=== PATIENT | female | born 1955 | race Caucasian/White ===

== ENCOUNTER 2022-04-10 00:56 | Inpatient (IN) | payer MEDICARE ==
[2022-04-10] MEDS ORDERED: SODIUM CHLORIDE 0.9% 1,000 ML IV STA ×4 (01:33→04:51)
[2022-04-10] MEDS ORDERED: DILTIAZEM DRIP BOLUS FROM BAG 1 MG SOLN IV ONE (01:44)
--- NOTE | 2022-04-10 01:44 | ED ---
Fever HPI - General Chief Complaint: Syncope Stated Complaint: Reaction to medication Time Seen by Provider: 04/10/22 01:33 Source: patient, EMS, RN notes reviewed, old records reviewed Mode of arrival: EMS Limitations: no limitations - History of Present Illness Initial Comments: This is a 66-year-old female presenting after event. Patient hasn't had a fever and chills for about 2 weeks now. 2 weeks ago was diagnosed with urinary tract infection and sent to the emergency department for evaluation. At times patient complains of headache bodyaches body pains decreased urination fever and chills. MD Complaint: fever, malaise, weakness -: days(s) Temperature Source: subjective, oral Context: recent antibiotic use Associated Symptoms: myalgias, nausea, vomiting, confusion Treatments Prior to Arrival: none - Related Data Home Medications Medication Instructions Recorded Confirmed Lisinopril-Hctz 20-12.5 mg 1 tab PO DAILY 04/10/22 04/10/22 [Zestoretic 20-12.5] Metoprolol Succinate (ER) [Toprol 100 mg PO DAILY 04/10/22 04/10/22 Xl] Pioglitazone [Actos] 45 mg PO DAILY 04/10/22 04/10/22 Simvastatin 40 mg PO DAILY 04/10/22 04/10/22 Terbinafine [LamISIL] 250 mg PO DAILY 04/10/22 04/10/22 traZODone HCL [Desyrel] 50 mg PO HS 04/10/22 04/10/22 Allergies Allergy/AdvReac Type Severity Reaction Status Date / Time No Known Allergies Allergy Verified 04/10/22 07:40 Review of Systems ROS Statement: Those systems with pertinent positive or pertinent negative responses have been documented in the HPI. ROS Other: All systems not noted in ROS Statement are negative. Past Medical History Past Medical History: Atrial Fibrillation, Diabetes Mellitus, Hyperlipidemia Additional Past Medical History / Comment(s): recent kidney infection History of Any Multi-Drug Resistant Organisms: None Reported Past Surgical History: Ablation Additional Past Surgical History / Comment(s): ablation Aug 2021 Past Psychological History: No Psychological Hx Reported Smoking Status: Never smoker Past Alcohol Use History: Occasional General Exam Limitations: altered mental status General appearance: alert, anxious, lethargic, in distress Head exam: Present: atraumatic, normocephalic, normal inspection Eye exam: Present: normal appearance, PERRL, EOMI. Absent: scleral icterus, conjunctival injection, periorbital swelling ENT exam: Present: normal exam, mucous membranes dry Neck exam: Present: normal inspection. Absent: tenderness, meningismus, lymphadenopathy Respiratory exam: Present: normal lung sounds bilaterally. Absent: respiratory distress, wheezes, rales, rhonchi, stridor Cardiovascular Exam: Present: normal rhythm, tachycardia, normal heart sounds. Absent: systolic murmur, diastolic murmur, rubs, gallop, clicks GI/Abdominal exam: Present: soft, normal bowel sounds. Absent: distended, tenderness, guarding, rebound, rigid Extremities exam: Present: normal inspection, full ROM, normal capillary refill. Absent: tenderness, pedal edema, joint swelling, calf tenderness Back exam: Present: normal inspection Neurological exam: Present: alert, oriented X3, CN II-XII intact Psychiatric exam: Present: normal affect, normal mood Skin exam: Present: warm, dry, intact, normal color. Absent: rash Course Vital Signs 04/10/22 04/10/22 04/10/22 00:56 01:17 03:00 Temperature 100.6 F H Pulse Rate 110 H 103 H Pulse Rate [ 143 H Bilateral Supine Auth Specialist] Respiratory 16 24 Rate Blood Pressure 97/47 84/44 O2 Sat by Pulse 97 98 Oximetry 04/10/22 04/10/22 04/10/22 03:15 03:30 03:45 Temperature Pulse Rate 103 H 102 H 102 H Pulse Rate [ Bilateral Supine Auth Specialist] Respiratory 24 24 24 Rate Blood Pressure 81/48 75/48 78/46 O2 Sat by Pulse Oximetry 04/10/22 04/10/22 04/10/22 04:00 04:15 04:40 Temperature Pulse Rate 93 93 93 Pulse Rate [ Bilateral Supine Auth Specialist] Respiratory 20 20 20 Rate Blood Pressure 81/49 70/46 83/52 O2 Sat by Pulse 94 L Oximetry 04/10/22 04/10/22 04/10/22 04:57 05:27 07:42 Temperature 98.3 F Pulse Rate 95 93 99 Pulse Rate [ Bilateral Supine Auth Specialist] Respiratory 25 H 20 14 Rate Blood Pressure 91/55 82/52 92/53 O2 Sat by Pulse 96 96 98 Oximetry 04/10/22 04/10/22 04/10/22 08:00 08:52 09:00 Temperature Pulse Rate 99 95 Pulse Rate [ Bilateral Supine Auth Specialist] Respiratory 16 23 Rate Blood Pressure 94/54 83/54 95/53 O2 Sat by Pulse 97 99 Oximetry 04/10/22 04/10/22 04/10/22 10:00 11:00 13:00 Temperature 97.7 F Pulse Rate 96 93 91 Pulse Rate [ Bilateral Supine Auth Specialist] Respiratory 18 22 16 Rate Blood Pressure 99/60 94/57 101/64 O2 Sat by Pulse 97 99 99 Oximetry 04/10/22 04/10/22 04/10/22 14:00 15:00 17:00 Temperature Pulse Rate 108 H 93 93 Pulse Rate [ Bilateral Supine Auth Specialist] Respiratory 18 16 22 Rate Blood Pressure 112/78 117/67 100/63 O2 Sat by Pulse 99 99 98 Oximetry - Reevaluation(s) Reevaluation #1: 04/10/22 03:19 Medical record is reviewed Reevaluation #2: 04/10/22 03:19 Patient did convert out of atrial fibrillation and is sinus rhythm Reevaluation #3: 04/10/22 06:53 Blood pressure continues to decompensate despite IV bolus, central line is placed patient certainly verified, septic shock Current UTI source likely bacteremia - Consultations Consultation #1: Spoke with sound who agrees to admit this patient Consultation #2: spoke w ICU who except patient ICU Procedures - Central Line Placement Right IJ Consent Obtained: verbal consent Patient Placed on Monitor/Pulse Ox: Yes Prep: mask, gown, gloves Central Line Prep: Chlorhexidine scrub, sterile drapes applied Local Anesthesia Used: Lidocaine 1% Ultrasound Used for Placement: Yes Central Line Lumen Inserted: triple Central Line Position: good blood return, all ports aspirated, flushed, capped, sutured in place with nylon Dressing Applied: Tegaderm Post Procedure X-Ray: tip of catheter in good position Patient Tolerated Procedure: well Complications: none - Sepsis Sepsis Focused Exam #1 Time Sepsis Criteria Met: 05:00 Sepsis Focused Exam Date: 04/10/22 Sepsis Focused Exam Time: 05:30 Sepsis Focused Exam Complete: Yes Vital Signs & RN Notes Reviewed: Yes Capillary Refill: < 2 Seconds: Fingers, Toes Peripheral Pulses: Normal: Radial (R), Radial (L), Posterior Tibialis (R), Posterior Tibialis (L), Dorsalis Pedis (R), Dorsalis Pedis (L) Skin Color: Normal for Patient Respiratory Exam: normal lung sounds Cardiovascular Exam: regular rate, normal rhythm Medical Decision Making - Medical Decision Making 66 female to the emergency department for evaluation. Patient is found to be in septic shock started on pressors with central line secondary to urinary tract infection not complete outpatient treatment. Patient placed on IV antibiotics, given significant significant resuscitation as well as started on blood pressure medication - Lab Data Result diagrams: 04/12/22 03:22 04/12/22 03:22 Lab Results 04/10/22 04/10/22 04/10/22 Range/Units 02:59 02:59 02:59 WBC 10.1 (3.8-10.6) k/uL RBC 4.60 (3.80-5.40) m/uL Hgb 14.3 (11.4-16.0) gm/dL Hct 42.5 (34.0-46.0) % MCV 92.2 (80.0-100.0) fL MCH 31.0 (25.0-35.0) pg MCHC 33.6 (31.0-37.0) g/dL RDW 13.9 (11.5-15.5) % Plt Count 288 (150-450) k/uL MPV 8.2 Neutrophils % (Manual) 82 % Band Neuts % (Manual) 11 % Lymphocytes % (Manual) 5 % Monocytes % (Manual) 2 % Neutrophils # (Manual) 9.30 H (1.3-7.7) k/uL Lymphocytes # (Manual) 0.51 L (1.0-4.8) k/uL Monocytes # (Manual) 0.20 (0-1.0) k/uL Nucleated RBCs 0 (0-0) /100 WBC Manual Slide Review Performed Large Platelets Present Polychromasia Present PT 15.9 H (9.0-12.0) sec INR 1.5 H (<1.2) APTT 27.5 (22.0-30.0) sec D-Dimer 0.87 H (<0.60) mg/L FEU Sodium 131 L (137-145) mmol/L Potassium 4.1 (3.5-5.1) mmol/L Chloride 103 (98-107) mmol/L Carbon Dioxide 16 L (22-30) mmol/L Anion Gap 12 mmol/L BUN 46 H (7-17) mg/dL Creatinine 2.02 H (0.52-1.04) mg/dL Est GFR (CKD-EPI)AfAm 29 (>60 ml/min/1.73 sqM) Est GFR (CKD-EPI)NonAf 25 (>60 ml/min/1.73 sqM) Glucose 204 H (74-99) mg/dL Lactic Ac Sepsis Rflx Plasma Lactic Acid Harpal (0.7-2.0) mmol/L Calcium 8.7 (8.4-10.2) mg/dL Phosphorus 1.5 L (2.5-4.5) mg/dL Magnesium 1.5 L (1.6-2.3) mg/dL Total Bilirubin 0.3 (0.2-1.3) mg/dL AST 26 (14-36) U/L ALT 18 (4-34) U/L Alkaline Phosphatase 171 H (38-126) U/L Troponin I (0.000-0.034) ng/mL NT-Pro-B Natriuret Pep pg/mL Total Protein 5.6 L (6.3-8.2) g/dL Albumin 3.0 L (3.5-5.0) g/dL Urine Color Urine Appearance (Clear) Urine pH (5.0-8.0) Ur Specific Everett (1.001-1.035) Urine Protein (Negative) Urine Glucose (UA) (Negative) Urine Ketones (Negative) Urine Blood (Negative) Urine Nitrite (Negative) Urine Bilirubin (Negative) Urine Urobilinogen (<2.0) mg/dL Ur Leukocyte Esterase (Negative) Urine RBC (0-5) /hpf Urine WBC (0-5) /hpf Ur Squamous Epith Cells (0-4) /hpf Urine Bacteria (None) /hpf Urine Mucus (None) /hpf Influenza Type A (PCR) (Not Detectd) Influenza Type B (PCR) (Not Detectd) RSV (PCR) (Not Detectd) SARS-CoV-2 (PCR) (Not Detectd) 04/10/22 04/10/22 04/10/22 Range/Units 02:59 02:59 02:59 WBC (3.8-10.6) k/uL RBC (3.80-5.40) m/uL Hgb (11.4-16.0) gm/dL Hct (34.0-46.0) % MCV (80.0-100.0) fL MCH (25.0-35.0) pg MCHC (31.0-37.0) g/dL RDW (11.5-15.5) % Plt Count (150-450) k/uL MPV Neutrophils % (Manual) % Band Neuts % (Manual) % Lymphocytes % (Manual) % Monocytes % (Manual) % Neutrophils # (Manual) (1.3-7.7) k/uL Lymphocytes # (Manual) (1.0-4.8) k/uL Monocytes # (Manual) (0-1.0) k/uL Nucleated RBCs (0-0) /100 WBC Manual Slide Review Large Platelets Polychromasia PT (9.0-12.0) sec INR (<1.2) APTT (22.0-30.0) sec D-Dimer (<0.60) mg/L FEU Sodium (137-145) mmol/L Potassium (3.5-5.1) mmol/L Chloride (98-107) mmol/L Carbon Dioxide (22-30) mmol/L Anion Gap mmol/L BUN (7-17) mg/dL Creatinine (0.52-1.04) mg/dL Est GFR (CKD-EPI)AfAm (>60 ml/min/1.73 sqM) Est GFR (CKD-EPI)NonAf (>60 ml/min/1.73 sqM) Glucose (74-99) mg/dL Lactic Ac Sepsis Rflx Plasma Lactic Acid Harpal 3.1 H* (0.7-2.0) mmol/L Calcium (8.4-10.2) mg/dL Phosphorus (2.5-4.5) mg/dL Magnesium (1.6-2.3) mg/dL Total Bilirubin (0.2-1.3) mg/dL AST (14-36) U/L ALT (4-34) U/L Alkaline Phosphatase (38-126) U/L Troponin I <0.012 (0.000-0.034) ng/mL NT-Pro-B Natriuret Pep 323 pg/mL Total Protein (6.3-8.2) g/dL Albumin (3.5-5.0) g/dL Urine Color Urine Appearance (Clear) Urine pH (5.0-8.0) Ur Specific [place] (1.001-1.035) Urine Protein (Negative) Urine Glucose (UA) (Negative) Urine Ketones (Negative) Urine Blood (Negative) Urine Nitrite (Negative) Urine Bilirubin (Negative) Urine Urobilinogen (<2.0) mg/dL Ur Leukocyte Esterase (Negative) Urine RBC (0-5) /hpf Urine WBC (0-5) /hpf Ur Squamous Epith Cells (0-4) /hpf Urine Bacteria (None) /hpf Urine Mucus (None) /hpf Influenza Type A (PCR) (Not Detectd) Influenza Type B (PCR) (Not Detectd) RSV (PCR) (Not Detectd) SARS-CoV-2 (PCR) (Not Detectd) 04/10/22 04/10/22 04/10/22 Range/Units 03:51 04:40 04:40 WBC (3.8-10.6) k/uL RBC (3.80-5.40) m/uL Hgb (11.4-16.0) gm/dL Hct (34.0-46.0) % MCV (80.0-100.0) fL MCH (25.0-35.0) pg MCHC (31.0-37.0) g/dL RDW (11.5-15.5) % Plt Count (150-450) k/uL MPV Neutrophils % (Manual) % Band Neuts % (Manual) % Lymphocytes % (Manual) % Monocytes % (Manual) % Neutrophils # (Manual) (1.3-7.7) k/uL Lymphocytes # (Manual) (1.0-4.8) k/uL Monocytes # (Manual) (0-1.0) k/uL Nucleated RBCs (0-0) /100 WBC Manual Slide Review Large Platelets Polychromasia PT (9.0-12.0) sec INR (<1.2) APTT (22.0-30.0) sec D-Dimer (<0.60) mg/L FEU Sodium (137-145) mmol/L Potassium (3.5-5.1) mmol/L Chloride (98-107) mmol/L Carbon Dioxide (22-30) mmol/L Anion Gap mmol/L BUN (7-17) mg/dL Creatinine (0.52-1.04) mg/dL Est GFR (CKD-EPI)AfAm (>60 ml/min/1.73 sqM) Est GFR (CKD-EPI)NonAf (>60 ml/min/1.73 sqM) Glucose (74-99) mg/dL Lactic Ac Sepsis Rflx Y Plasma Lactic Acid Harpal (0.7-2.0) mmol/L Calcium (8.4-10.2) mg/dL Phosphorus (2.5-4.5) mg/dL Magnesium (1.6-2.3) mg/dL Total Bilirubin (0.2-1.3) mg/dL AST (14-36) U/L ALT (4-34) U/L Alkaline Phosphatase (38-126) U/L Troponin I (0.000-0.034) ng/mL NT-Pro-B Natriuret Pep pg/mL Total Protein (6.3-8.2) g/dL Albumin (3.5-5.0) g/dL Urine Color Yellow Urine Appearance Cloudy H (Clear) Urine pH 5.5 (5.0-8.0) Ur Specific [place] 1.009 (1.001-1.035) Urine Protein 1+ H (Negative) Urine Glucose (UA) Negative (Negative) Urine Ketones Negative (Negative) Urine Blood Moderate H (Negative) Urine Nitrite Negative (Negative) Urine Bilirubin Negative (Negative) Urine Urobilinogen <2.0 (<2.0) mg/dL Ur Leukocyte Esterase Large H (Negative) Urine RBC <1 (0-5) /hpf Urine WBC 10 H (0-5) /hpf Ur Squamous Epith Cells 1 (0-4) /hpf Urine Bacteria Many H (None) /hpf Urine Mucus Rare H (None) /hpf Influenza Type A (PCR) Not Detected (Not Detectd) Influenza Type B (PCR) Not Detected (Not Detectd) RSV (PCR) Not Detected (Not Detectd) SARS-CoV-2 (PCR) Not Detected (Not Detectd) - EKG Data -: EKG Interpreted by Me (EKG is tachycardia 104 NC 137 QRS 88 QTc 386) - Radiology Data Radiology results: report reviewed (CT brain and chest x-ray are negative for acute disease CT head and pelvis shows possible left-sided pyelonephritis with kidney stones), image reviewed Critical Care Time Critical Care Time: Yes Total Critical Care Time: 65 Disposition Clinical Impression: Vasovagal syncope, Sepsis, Fever, UTI (urinary tract infection), Atrial fibrillation with RVR, Shock, NOEMY (acute kidney injury), Pyelonephritis of left kidney, Dehydration Disposition: ADMITTED IP TO THIS HOSP Condition: Serious Is patient prescribed a controlled substance at d/c from ED?: No Decision Time: 06:50
[2022-04-10] MEDS ORDERED: ACETAMINOPHEN IV (For NPO) 1,000 MG in EMPTY BAG 1 BAG IVPB STA (02:23)
[2022-04-10] MEDS ORDERED: DILTIAZEM 125 MG in SODIUM CHLORIDE 0.9% 100 ML IV SCH (02:30)
[2022-04-10] MEDS ORDERED: KETOROLAC 15 MG/ML 1 ML VIAL IVP STA (03:18)
--- NOTE | 2022-04-10 03:34 | XR ---
EXAMINATION TYPE: XR chest 1V portable DATE OF EXAM: 04/10/2022 COMPARISON: NONE HISTORY: Fever TECHNIQUE: Single view FINDINGS: Heart is normal. Lungs are clear of infiltrate. No heart failure. There are chest leads. Th ere are no hilar masses. IMPRESSION: No active cardiopulmonary disease. Normal heart.
--- NOTE | 2022-04-10 03:36 | CT ---
EXAMINATION TYPE: CT brain wo con DATE OF EXAM: 04/10/2022 COMPARISON: None HISTORY: syncope CT DLP: 1094.4 mGycm Automated exposure control for dose reduction was used. Exam performed with no contrast. Ventricles have fairly normal size. There is no mass effect or midline shift. No sign of intracranial hemorrhage. Calvarium is intact. There is normal aeration of the mastoid sinuses. Skull base is inta ct. There is some mild white matter hypodensity in the posterior parietal lobes. IMPRESSION: Mild posterior parietal lobe hypodensity could be some microvascular ischemia.
[2022-04-10 03:42] LABS: Calcium 8.7 mg/dL (8.4-10.2); Magnesium 1.5 mg/dL (1.6-2.3); Phosphorus 1.5 mg/dL (2.5-4.5); Potassium 4.1 mmol/L (3.5-5.1); Total Bilirubin 0.3 mg/dL (0.2-1.3); Total Protein 5.6 g/dL (6.3-8.2)
[2022-04-10 03:44] LABS: HCT 42.5 % (34.0-46.0); HGB 14.3 gm/dL (11.4-16.0); MCHC 33.6 g/dL (31.0-37.0); MCV 92.2 fL (80.0-100.0); Mean Platelet Volume 8.2; Platelet Count 288 k/uL (150-450); RDW 13.9 % (11.5-15.5); WBC 10.1 k/uL (3.8-10.6)
[2022-04-10 03:45] LABS: INR 1.5 (<1.2); Partial Thromboplastin Time 27.5 sec (22.0-30.0); Prothrombin Time 15.9 sec (9.0-12.0)
[2022-04-10 04:28] LABS: Band Neutrophils % 11 %; Large Platelets Present; Lymphocytes # (M) 0.51 k/uL (1.0-4.8); Neutrophils % (M) 82 %; Nucleated Red Blood Cells 0 /100 WBC (0-0); Total Cells Counted 100
[2022-04-10 04:29] LABS: Polychromasia Present
[2022-04-10 04:58] LABS: Appearance,Urine Cloudy (Clear); Bacteria,Urine Many /hpf; Bilirubin,Urine Negative (Negative); Blood,Urine Moderate (Negative); Color,Urine Yellow; Glucose,Urine (UA) Negative (Negative); Ketones,Urine Negative (Negative); Leukocyte Esterase,Urine Large (Negative); Mucus,Urine Rare /hpf; Nitrite,Urine Negative (Negative); PH, Urine 5.5 (5.0-8.0); Protein,Urine 1+ (Negative); RBC,Urine <1 /hpf (0-5); Specific Gravity,Urine 1.009 (1.001-1.035); Squamous Epithelial Cell,Urine 1 /hpf (0-4); Urobilinogen,Urine <2.0 mg/dL (<2.0); WBC,Urine 10 /hpf (0-5)
[2022-04-10] MEDS ORDERED: ONDANSETRON 4 MG/2 ML VIAL IVP PRN (06:17)
[2022-04-10] MEDS ORDERED: NALOXONE 0.4 MG/ML 1 ML VIAL IV PRN (06:17)
[2022-04-10] MEDS ORDERED: LORazepam 2 MG/ML INJ IV PRN (06:17)
[2022-04-10] MEDS ORDERED: MORPHINE SULFATE 4 MG/ML SYRINGE IV PRN (06:17)
[2022-04-10] MEDS ORDERED: SODIUM CHLORIDE 0.9% 1,000 ML IV SCH (06:30)
[2022-04-10] MEDS: MAGNESIUM SULFATE-D5W PMX 1 GM in DEXTROSE/WATER 1 100ML.BAG IVPB SCH ×2 (06:58→07:54)
[2022-04-10] MEDS: NOREPINEPHRINE 32 MG in SODIUM CHLORIDE 0.9% 218 ML IV SCH (07:31)
--- NOTE | 2022-04-10 08:53 | CT ---
EXAMINATION TYPE: CT abdomen pelvis wo con DATE OF EXAM: 04/10/2022 COMPARISON: Radiograph same day HISTORY: 66-year-old female UTI, Sepsis, NOEMY CT DLP: 867.9 mGycm. Automated exposure control for dose reduction was used. TECHNIQUE: Contiguous axial scanning of the abdomen and pelvis without IV contrast. Coronal and sagit irvin reconstructions performed. FINDINGS: There appears to have been placement of some type of central line into the right atrium. Heart upper limits of normal in size without pericardial effusion. Extensive dependent opacities posteriorly with in the lungs. Postsurgical change at the GE junction. Liver mildly enlarged 18.3 cm. No abnormal gallbladder distention. Mild generalized anasarca change. Adrenal glands and spleen within normal limits. Mild peripancreatic fat stranding may relate to the anasarca changes. There is also bilateral perinep hric edema. Some fat stranding also noted within the region of the left renal sinus. Bilateral mild fullness of the renal collecting systems probably transient. A couple calculi measurin g 1.0 cm and 0.8 cm dependent within the left renal pelvis. Additional nonobstructing 4 mm left lower pole renal calculus. No obstructing stone is seen at this time. Mild atherosclerotic calcifications infrarenal abdominal aorta without aneurysm. No dilated small bowel, free fluid, or free air. No mesenteric or retroperitoneal lymphadenopathy. Normal appendix. Left-sided colonic diverticulosis, greatest in the mid to distal sigmoid colon. No perihepatic inflammatory change. Bladder partially collapsed. Elias catheter balloon is present. Trace intraluminal air anteriorly wit hin the bladder likely relating to instrumentation. Some air is present within the Elias balloon is w ell. Pelvic phleboliths. Uterus anteverted. Somewhat masslike configuration to the cervix, probable r edundant soft tissue, axial image 81. Both ovaries are visualized. No abnormal fluid collection in th e pelvis or pelvic lymphadenopathy. Bones: Facet arthropathy lower lumbar spine. Transitional lumbosacral segment. IMPRESSION: 1. Mild anasarca change suggests third spacing/fluid overload state. 2. A couple stones measuring 10 mm and 8 mm dependent within the left renal collecting system. No ob structing stones are seen at this time. These may imminently pass into the left ureter. Mild fullness of the bilateral renal collecting systems likely transient. 3. Perinephric edema and hazy stranding asymmetrically more around the left kidney extending into th e region of the renal sinus. Correlate to exclude underlying infection. 4. Prominent dependent opacities within the posterior lungs probably extensive atelectasis. Recommen d incentive spirometry and reassessment to exclude dependent infiltrates. 5. Mild peripancreatic fat stranding likely relates to the generalized anasarca change. Correlate wi th amylase and lipase to exclude the possibility of mild acute interstitial pancreatitis. 6. Elias catheter in place. Left-sided colonic diverticulosis without acute diverticulitis. 7. Somewhat masslike appearance to the region of the uterine cervix. Probably due to noncontrast ro hnique and soft tissue overlap. As a precautionary measure, correlate with Pap smear results when pat ient able.
--- NOTE | 2022-04-10 10:55 | P.NPCON ---
History of Present Illness - Reason for Consult acute renal failure - History of Present Illness Reason for consultation: Acute kidney injury History of present illness: Patient is a 66-year-old female seen in renal consultation for acute kidney injury. Unknown baseline renal function. Patient is resting in bed. Family is present at bedside. Family states that the patient was treated for a urinary t ract infection as well as left foot infection about 2 weeks ago but only took antibiotics for about 4 days and then stopped taking them due to side effects. Patient and family do not recall the name of antibiotic. Patient developed fever and chills and was also weaker than usual. She was up frequently brought to the hospital. Patient was noted to be quite hypotensive with blood pressure in the systolic 70s to 80s on admission. She did receive 4 L of normal saline bolus and is now maintained on normal saline at 130 mL an hour. She has a Elias catheter with good urine output. She is also on Levophed at this time. She does have history of diabetes. She was taking Zestoretic at home which is currently held. She denies use of nonsteroidals. Denies personal or family history of kidney disease. Patient has history of A. fib. Temperature on admission was 100.6F. Vital signs are stable. On vasopressor support. General: Awake. No acute distress. HEENT: Head exam is unremarkable. LUNGS: Breath sounds decreased. HEART: Rate and Rhythm are regular. ABDOMEN: Soft, no distention. EXTREMITITES: No edema. Past Medical History Past Medical History: Atrial Fibrillation, Diabetes Mellitus, Hyperlipidemia Additional Past Medical History / Comment(s): recent kidney infection History of Any Multi-Drug Resistant Organisms: None Reported Past Surgical History: Ablation Additional Past Surgical History / Comment(s): ablation Aug 2021 Past Psychological History: No Psychological Hx Reported Smoking Status: Never smoker Past Alcohol Use History: Occasional Medications and Allergies Home Medications Medication Instructions Recorded Confirmed Type Lisinopril-Hctz 20-12.5 mg 1 tab PO DAILY 04/10/22 04/10/22 History [Zestoretic 20-12.5] Metoprolol Succinate (ER) [Toprol 100 mg PO DAILY 04/10/22 04/10/22 History Xl] Pioglitazone [Actos] 45 mg PO DAILY 04/10/22 04/10/22 History Simvastatin 40 mg PO DAILY 04/10/22 04/10/22 History Terbinafine [LamISIL] 250 mg PO DAILY 04/10/22 04/10/22 History traZODone HCL [Desyrel] 50 mg PO HS 04/10/22 04/10/22 History Allergies Allergy/AdvReac Type Severity Reaction Status Date / Time No Known Allergies Allergy Verified 04/10/22 07:40 Physical Exam Vitals: Vital Signs Temp Pulse Pulse Resp BP Pulse Ox 04/10/22 10:00 96 18 99/60 97 04/10/22 09:00 95/53 04/10/22 08:52 95 23 83/54 99 04/10/22 08:00 99 16 94/54 97 04/10/22 07:42 99 14 92/53 98 04/10/22 05:27 93 20 82/52 96 04/10/22 04:57 98.3 F 95 25 H 91/55 96 04/10/22 04:40 93 20 83/52 94 L 04/10/22 04:15 93 20 70/46 04/10/22 04:00 93 20 81/49 04/10/22 03:45 102 H 24 78/46 04/10/22 03:30 102 H 24 75/48 04/10/22 03:15 103 H 24 81/48 04/10/22 03:00 103 H 24 84/44 98 04/10/22 01:17 100.6 F H 110 H 16 97/47 97 04/10/22 00:56 143 H Intake and Output 04/09/22 04/10/22 04/10/22 22:59 06:59 14:59 Other: Weight 71.9 kg Results - Lab Results Most recent lab results Calcium 8.7 mg/dL (8.4-10.2) 04/10/22 02:59 Phosphorus 1.5 mg/dL (2.5-4.5) L 04/10/22 02:59 Magnesium 1.5 mg/dL (1.6-2.3) L 04/10/22 02:59 04/10/22 02:59 04/10/22 02:59 Assessment and Plan Plan: Assessment: 1. Acute kidney injury secondary to ATN secondary to septic shock. Creatinine 2.02 on admission. Unknown baseline renal function. Mild renal collecting system fullness noted on CAT scan. 2. Metabolic acidosis secondary to acute kidney injury and lactic acidosis. 3. Septic shock on Levophed. Possibly urinary source versus left foot infection. 4. Hypovolemic hyponatremia. 5. Diabetes mellitus. 6. Hypomagnesemia from poor intake and diuretic. Replaced. 7. Hypophosphatemia from poor intake. Plan: Maintain IV fluids - decrease rate to 80 mL an hour. Wean vasopressors. Hold antihypertensives and diuretics. Follow-up cultures. Repeat labs today. Continue to monitor renal function and urine output. Check renal uls. Thank you for this consultation. I will continue to follow the patient with you during her hospital stay.
--- NOTE | 2022-04-10 11:30 | P.HPIM ---
History of Present Illness H&P Date: 04/10/22 Chief Complaint: Generalized weakness, flank pain 66-year-old woman with history of paroxysmal atrial fibrillation, HLD, HTN, DM who presented with generalized weakness, fevers, and left flank pain. Per family, she was diagnosed with urinary tract infection approximately 2 weeks ago and given cephalexin 250 mg 3 times a day. However, after 4 days of taking this medication, she discontinued it because it was making her feel nauseous. She has not been taking any of her antibiotics since that time, but continues to take her home medications including her blood pressure medications. She is grown progressively weak, and started to complain of significant left-sided pain in the last few days. In the last 24 hours, family has noted decreased urine output, as well as decreased oral intake. Patient reports fevers, chills, generalized weakness, pain, dysuria. She denies chest pain, palpitations, cough, syncopal, presyncopal, abdominal pain, constipation, diarrhea, dyschezia, numbness/weakness of her extremities. In the emergency room, patient's T-max was 100.6, 97/47, 110 heart rate, 97% on room air. CBC shows a left shifted neutrophils without associated leukocytosis. Chemistries show hyponatremia to 131, carbon dioxide of 16, BUN/creatinine of 46/2.0 to without a history of chronic kidney disease. Liver function tests show elevated alkaline phosphatase to 171, total protein of 5.6, albumin 3.0. BNP was 323, troponin was less than 0.12. Initial lactic acid was 3.1. Initial heart rate was 140. After receiving 4 L of fluid bolus and being started on 130 mL per hour of normal saline, patient's lactic acid improved to 1.2, heart rate improved to low 100s, however, urine output remains low and patient remains hypotensive requiring low-dose pressors. She was consequently admitted to the ICU for septic shock, nephrology consulted, pulmonary consulted, medicine admitted patient for further management. All Systems reviewed and pertinent positives and negatives noted in HPI, all other symptoms are negative. Gen: in no apparent distress, resting comfortably in bed Eyes: PERRL, no scleral injection or icterus HENT: normocephalic, atraumatic, good hearing acuity, moist mucous membranes Neck: no tracheal deviation, full range of motion Resp: good air exchange, breathing comfortably with no accessory muscle use, no tactile fremitus CVS: good distal perfusion x 4, no pitting edema GI: soft, NTTP, ND, no hepatosplenomegaly : no suprapubic tenderness, left-sided CVAT, fenton catheter is present MSK: no clubbing, no cyanosis, no noted contractures of extremities Skin: no noted rashes, petechiae; temperature of skin is appropriate Neuro: moving all extremities without signs of weakness, CN II-XII intact Psych: cooperative, euthymic mood, insight and judgment intact Labs and imaging reviewed as above Assessment/plan: Septic shock secondary to left-sided pyelonephritis E. coli urinary tract infection with resistance to amoxicillin, Augmentin, gentamicin, tobramycin, no ESBL Acute renal failure secondary to ATN (UCx results obtained from PCPs office, patient failed cephalexin outpatient) -Admit to ICU, telemetry -Pulmonary consult, nephrology consult -Continue IV fluids -Continue pressors as required for map greater than 65 -Ceftriaxone will be broadened to Zosyn until urine culture results -Morphine when necessary for pain control -Zofran when necessary for nausea control -Strict ins and outs, daily weights Paroxysmal atrial fibrillation Hypertension Hyperlipidemia Diabetes type 2 -Home medications reviewed and reconciled -Low-dose sliding scale insulin Patient is full code DVT prophylaxis with heparin 3 times a day Past Medical History Past Medical History: Atrial Fibrillation, Diabetes Mellitus, Hyperlipidemia Additional Past Medical History / Comment(s): recent kidney infection History of Any Multi-Drug Resistant Organisms: None Reported Past Surgical History: Ablation Additional Past Surgical History / Comment(s): ablation Aug 2021 Past Psychological History: No Psychological Hx Reported Smoking Status: Never smoker Past Alcohol Use History: Occasional Medications and Allergies Home Medications Medication Instructions Recorded Confirmed Type Lisinopril-Hctz 20-12.5 mg 1 tab PO DAILY 04/10/22 04/10/22 History [Zestoretic 20-12.5] Metoprolol Succinate (ER) [Toprol 100 mg PO DAILY 04/10/22 04/10/22 History Xl] Pioglitazone [Actos] 45 mg PO DAILY 04/10/22 04/10/22 History Simvastatin 40 mg PO DAILY 04/10/22 04/10/22 History Terbinafine [LamISIL] 250 mg PO DAILY 04/10/22 04/10/22 History traZODone HCL [Desyrel] 50 mg PO HS 04/10/22 04/10/22 History Allergies Allergy/AdvReac Type Severity Reaction Status Date / Time No Known Allergies Allergy Verified 04/10/22 07:40 Physical Exam Osteopathic Statement: *. No significant issues noted on an osteopathic s tructural exam other than those noted in the History and Physical/Consult. Vitals: Vital Signs Temp Pulse Pulse Resp BP Pulse Ox 04/10/22 10:00 96 18 99/60 97 04/10/22 09:00 95/53 04/10/22 08:52 95 23 83/54 99 04/10/22 08:00 99 16 94/54 97 04/10/22 07:42 99 14 92/53 98 04/10/22 05:27 93 20 82/52 96 04/10/22 04:57 98.3 F 95 25 H 91/55 96 04/10/22 04:40 93 20 83/52 94 L 04/10/22 04:15 93 20 70/46 04/10/22 04:00 93 20 81/49 04/10/22 03:45 102 H 24 78/46 04/10/22 03:30 102 H 24 75/48 04/10/22 03:15 103 H 24 81/48 04/10/22 03:00 103 H 24 84/44 98 04/10/22 01:17 100.6 F H 110 H 16 97/47 97 04/10/22 00:56 143 H Intake and Output 04/09/22 04/10/22 04/10/22 22:59 06:59 14:59 Other: Weight 71.9 kg Results CBC & Chem 7: 04/10/22 02:59 04/10/22 02:59 Labs: Abnormal Lab Results - Last 24 Hours (Table) 04/10/22 04/10/22 04/10/22 Range/Units 02:59 02:59 02:59 Neutrophils # (Manual) 9.30 H (1.3-7.7) k/uL Lymphocytes # (Manual) 0.51 L (1.0-4.8) k/uL PT 15.9 H (9.0-12.0) sec INR 1.5 H (<1.2) D-Dimer 0.87 H (<0.60) mg/L FEU Sodium 131 L (137-145) mmol/L Carbon Dioxide 16 L (22-30) mmol/L BUN 46 H (7-17) mg/dL Creatinine 2.02 H (0.52-1.04) mg/dL Glucose 204 H (74-99) mg/dL Plasma Lactic Acid Harpal (0.7-2.0) mmol/L Phosphorus 1.5 L (2.5-4.5) mg/dL Magnesium 1.5 L (1.6-2.3) mg/dL Alkaline Phosphatase 171 H (38-126) U/L Total Protein 5.6 L (6.3-8.2) g/dL Albumin 3.0 L (3.5-5.0) g/dL Urine Appearance (Clear) Urine Protein (Negative) Urine Blood (Negative) Ur Leukocyte Esterase (Negative) Urine WBC (0-5) /hpf Urine Bacteria (None) /hpf Urine Mucus (None) /hpf 04/10/22 04/10/22 Range/Units 02:59 04:40 Neutrophils # (Manual) (1.3-7.7) k/uL Lymphocytes # (Manual) (1.0-4.8) k/uL PT (9.0-12.0) sec INR (<1.2) D-Dimer (<0.60) mg/L FEU Sodium (137-145) mmol/L Carbon Dioxide (22-30) mmol/L BUN (7-17) mg/dL Creatinine (0.52-1.04) mg/dL Glucose (74-99) mg/dL Plasma Lactic Acid Harpal 3.1 H* (0.7-2.0) mmol/L Phosphorus (2.5-4.5) mg/dL Magnesium (1.6-2.3) mg/dL Alkaline Phosphatase (38-126) U/L Total Protein (6.3-8.2) g/dL Albumin (3.5-5.0) g/dL Urine Appearance Cloudy H (Clear) Urine Protein 1+ H (Negative) Urine Blood Moderate H (Negative) Ur Leukocyte Esterase Large H (Negative) Urine WBC 10 H (0-5) /hpf Urine Bacteria Many H (None) /hpf Urine Mucus Rare H (None) /hpf
[2022-04-10] MEDS ORDERED: PIPERACILLIN-TAZOBACTAM 3.375 GM in SODIUM CHLORIDE 0.9% 100 ML IVPB SCH (12:00)
[2022-04-10 12:06] LABS: Calcium 7.5 mg/dL (8.4-10.2); Magnesium 2.1 mg/dL (1.6-2.3); Phosphorus 2.1 mg/dL (2.5-4.5); Potassium 4.7 mmol/L (3.5-5.1)
[2022-04-10 12:57] LABS: Glucose,Whole Blood 162 mg/dL (75-99)
--- NOTE | 2022-04-10 13:03 | P.CNPUL ---
History of Present Illness Consult date: 04/10/22 Chief complaint: Weakness History of present illness: This is a 66-year-old female patient, who lives in [facility] and her primary care physician is out of [place]. Over the past 2-3 weeks, the patient was having lethargy, weakness, chills, tiredness, fatigue and she was further investigated to her physician and she was told to have an E. coli UTI for which the patient was given a course of antibiotics patient with antibiotics for a total of 4 days patient up quitting the medication. She wasn't getting more nauseous. She ended up getting worse and her condition was decompensating as the patient was getting progressively more weak and tired. She came into the emergency department with the patient was found to be septic, she had an acute kidney injury with a creatinine of 2.0 and some mild lactic acidosis. UA was abnormal and the UTI was suspected. CAT scan of the abdomen and pelvis was done and it showed kidney stones and some swelling and edema of the left kidney and the patient had couple of stones in the left renal collecting system. The patient was started on IV Zosyn. The patient was given a total of 5 L of IV fluid normal saline and the blood pressure was soft and following that the patient was started on pressors and currently she is on norepinephrine infusion through a right IJ triple-lumen catheter running at 0.05 mcg/kg per minute. Urine output is adequate for now. Note that 2 weeks ago, the patient also had a bout of hematuria probably related to her kidney stones. She is diabetic. She has hypertension and hyperlipidemia as comorbid conditions. The baseline creatinine is not known. It'll come on evaluation in the ED, the patient was already feeling better. She had no respiratory distress. No cough sputum production chest tightness or wheezing. No other issues for now. No focal neurological deficits. No headaches. No neck stiffness. Mental status is improved. The lactic acid level is also improving. Creatinine is slightly lower. BNP level is 323. LFTs were essentially within normal limits. Review of Systems Constitutional: Reports fatigue, Reports fever, Reports poor appetite, Reports weakness Eyes: denies as per HPI, denies blurred vision, denies bulging eye, denies decreased vision, denies diplopia, denies discharge, denies dry eye, denies irritation, denies itching, denies pain, denies photophobia, denies loss of peripheral vision, denies loss of vision, denies tunnel vision/blind spots Ears: deny: decreased hearing, ear discharge, earache, tinnitus Ears, nose, mouth and throat: Reports as per HPI Breasts: absent: as per HPI, change in shape, gynecomastia, masses, nipple discharge, pain, skin changes, swelling Cardiovascular: Denies chest pain, Denies shortness of breath Respiratory: Reports as per HPI Gastrointestinal: Reports as per HPI Genitourinary: Reports hematuria, Reports kidney stones Menstruation: Reports as per HPI Musculoskeletal: Reports as per HPI Musculoskeletal: absent: ankle pain, ankle stiffness, ankle swelling, as per HPI, elbow pain, elbow stiffness, elbow swelling, foot pain, foot stiffness, foot swelling, hand pain, hand stiffness, hand swelling, hip pain, hip stiffness, hip swelling, knee pain, knee stiffness, knee swelling, shoulder pain, shoulder stiffness, shoulder swelling, wrist pain, wrist stiffness, wrist swelling Integumentary: Reports as per HPI Neurological: Reports as per HPI Endocrine: Reports as per HPI Hematologic/Lymphatic: Reports as per HPI Allergic/Immunologic: Reports as per HPI Past Medical History Past Medical History: Atrial Fibrillation, Diabetes Mellitus, Hyperlipidemia Additional Past Medical History / Comment(s): recent kidney infection History of Any Multi-Drug Resistant Organisms: None Reported Past Surgical History: Ablation Additional Past Surgical History / Comment(s): ablation Aug 2021 Past Psychological History: No Psychological Hx Reported Smoking Status: Never smoker Past Alcohol Use History: Occasional Medications and Allergies Home Medications Medication Instructions Recorded Confirmed Type Lisinopril-Hctz 20-12.5 mg 1 tab PO DAILY 04/10/22 04/10/22 History [Zestoretic 20-12.5] Metoprolol Succinate (ER) [Toprol 100 mg PO DAILY 04/10/22 04/10/22 History Xl] Pioglitazone [Actos] 45 mg PO DAILY 04/10/22 04/10/22 History Simvastatin 40 mg PO DAILY 04/10/22 04/10/22 History Terbinafine [LamISIL] 250 mg PO DAILY 04/10/22 04/10/22 History traZODone HCL [Desyrel] 50 mg PO HS 04/10/22 04/10/22 History Allergies Allergy/AdvReac Type Severity Reaction Status Date / Time No Known Allergies Allergy Verified 04/10/22 07:40 Physical Exam Vitals: Vital Signs Temp Pulse Pulse Resp BP Pulse Ox 04/10/22 11:00 97.7 F 93 22 94/57 99 04/10/22 10:00 96 18 99/60 97 04/10/22 09:00 95/53 04/10/22 08:52 95 23 83/54 99 04/10/22 08:00 99 16 94/54 97 04/10/22 07:42 99 14 92/53 98 04/10/22 05:27 93 20 82/52 96 04/10/22 04:57 98.3 F 95 25 H 91/55 96 04/10/22 04:40 93 20 83/52 94 L 04/10/22 04:15 93 20 70/46 04/10/22 04:00 93 20 81/49 04/10/22 03:45 102 H 24 78/46 04/10/22 03:30 102 H 24 75/48 04/10/22 03:15 103 H 24 81/48 04/10/22 03:00 103 H 24 84/44 98 04/10/22 01:17 100.6 F H 110 H 16 97/47 97 04/10/22 00:56 143 H Intake and Output 04/09/22 04/10/22 04/10/22 22:59 06:59 14:59 Output Total 1400 Balance -1400 Output: Urine 1400 Other: Weight 71.9 kg Gen: in no apparent distress, resting comfortably in bed Eyes: PERRL, no scleral injection or icterus HENT: normocephalic, atraumatic, good hearing acuity, moist mucous membranes. The patient has a right IJ triple-lumen catheter in place Neck: no tracheal deviation, full range of motion Lungs were clear to auscultation and percussion, and with normal diaphragmatic excursion. No wheezes or rales were noted. Cardiac exam revealed the PMI to be normally situated and sized. The rhythm was regular and no extrasystoles were noted during several minutes of auscultation. The first and second heart sounds were normal and physiologic splitting of the second heart sound was noted. There were no murmurs, rubs, clicks, or gallops. Abdominal exam revealed normal bowel sounds. The abdomen was soft, non-tender, and without masses, organomegaly, or appreciable enlargement of the abdominal a razia. : no suprapubic tenderness, left-sided CVAT, fenton catheter is present MSK: no clubbing, no cyanosis, no noted contractures of extremities Skin: no noted rashes, petechiae; temperature of skin is appropriate Neuro: moving all extremities without signs of weakness, CN II-XII intact Psych: cooperative, euthymic mood, insight and judgment intact Results - Laboratory Findings CBC and BMP: 04/10/22 02:59 04/10/22 11:17 PT/INR, D-dimer PT 15.9 sec (9.0-12.0) H 04/10/22 02:59 INR 1.5 (<1.2) H 04/10/22 02:59 D-Dimer 0.87 mg/L FEU (<0.60) H 04/10/22 02:59 Abnormal lab findings: Abnormal Labs 04/10/22 04/10/22 04/10/22 02:59 02:59 02:59 Neutrophils # (Manual) 9.30 H Lymphocytes # (Manual) 0.51 L PT 15.9 H INR 1.5 H D-Dimer 0.87 H Sodium 131 L Chloride Carbon Dioxide 16 L BUN 46 H Creatinine 2.02 H Glucose 204 H Plasma Lactic Acid Harpal Calcium Phosphorus 1.5 L Magnesium 1.5 L Alkaline Phosphatase 171 H Total Protein 5.6 L Albumin 3.0 L Urine Appearance Urine Protein Urine Blood Ur Leukocyte Esterase Urine WBC Urine Bacteria Urine Mucus 04/10/22 04/10/22 04/10/22 02:59 04:40 11:17 Neutrophils # (Manual) Lymphocytes # (Manual) PT INR D-Dimer Sodium Chloride 112 H Carbon Dioxide 15 L BUN 36 H Creatinine 1.95 H Glucose 177 H Plasma Lactic Acid Harpal 3.1 H* Calcium 7.5 L Phosphorus 2.1 L Magnesium Alkaline Phosphatase Total Protein Albumin Urine Appearance Cloudy H Urine Protein 1+ H Urine Blood Moderate H Ur Leukocyte Esterase Large H Urine WBC 10 H Urine Bacteria Many H Urine Mucus Rare H - Diagnostic Findings Chest x-ray: image reviewed Assessment and Plan Plan: Acute complicated left-sided pyelonephritis. The patient has obstructive uropathy with nephrolithiasis within the left urinary system/collecting ducts with some hydronephrosis. Septic shock secondary to above, received a total of 5 L of IV fluids and currently on low-dose pressors Recent UTI related to E. coli Hematuria, likely secondary to nephrolithiasis Acute kidney injury secondary to above Non-anion gap metabolic acidosis secondary to above. Hypotension secondary to above History of atrial fibrillation/V. tach post-ablation mentioned on long-term and to coagulation with Eliquis Hypertension Hyperlipidemia Diabetes mellitus Plan Continue IV fluids and switch this patient to bicarb infusion at the rate of 125 mL an hour to replace the bicarb deficit Continue IV Zosyn Urology consultation regarding complicated pyelonephritis and nephrolithiasis, possible need for a double-J stent insertion Monitor renal function Awaiting urine cultures and blood cultures Continue pressors Transfer to the ICU Hold anticoagulation for now
[2022-04-10] MEDS: HEPARIN SODIUM,PORCINE/PF 5,000 UNIT/0.5 ML SYRINGE SQ SCH ×2 (13:04→15:32)
[2022-04-10] MEDS: INSULIN ASPART (NovoLOG) 100 UNIT/ML VIAL SQ SCH ×2 (13:04→17:49)
[2022-04-10] MEDS: DEXTROSE 5% IN WATER 1,000 ML with SODIUM BICARB (1 MEQ/ML) 150 ML IV SCH ×2 (13:05→23:18)
[2022-04-10] MEDS ORDERED: Phosphorus Replacement Protoco 1 EACH MISC MISCELLANE PRN (14:10)
[2022-04-10] MEDS ORDERED: SODIUM PHOSPHATE 10 MMOL in SODIUM CHLORIDE 0.9% 250 ML IVPB ONE (15:00)
[2022-04-10] MEDS: PIPERACILLIN-TAZOBACTAM 3.375 GM in SODIUM CHLORIDE 0.9% 100 ML IVPB SCH (16:29)
[2022-04-10 16:46] LABS: Glucose,Whole Blood 250 mg/dL (75-99)
[2022-04-10 18:11] LABS: Glucose,Whole Blood 261 mg/dL (75-99)
--- NOTE | 2022-04-10 23:49 | US ---
EXAMINATION TYPE: US kidneys/renal and bladder DATE OF EXAM: 04/10/2022 COMPARISON: Same day CT CLINICAL HISTORY: noemy. NOEMY EXAM MEASUREMENTS: Right Kidney: 11.7 x 5.4 x 5.5 cm Left Kidney: 11.2 x 5.0 x 5.7 cm Right Kidney: Appeared wnl, perinephric edema near lower pole as visualized on CT Left Kidney: 1.0 cm renal stone within medial pelvis as visualized on CT, perinephric edema near lowe r pole as visualized on CT Bladder: Pt has catheter in place Bilateral Jets seen: No IMPRESSION: Left renal pelvic stone as described above, appreciated on the previous recent CT scan. Nonspecific b ilateral perinephric fat stranding. Grossly unremarkable kidneys otherwise. No hydronephrosis. Elias catheter is seen within the urinary bladder.
[2022-04-11] MEDS: PIPERACILLIN-TAZOBACTAM 3.375 GM in SODIUM CHLORIDE 0.9% 100 ML IVPB SCH ×4 (00:06→23:56)
[2022-04-11 06:46] LABS: Glucose,Whole Blood 278 mg/dL (75-99)
[2022-04-11] MEDS: INSULIN ASPART (NovoLOG) 100 UNIT/ML VIAL SQ SCH ×3 (06:53→17:17)
--- NOTE | 2022-04-11 07:36 | P.GSCN ---
History of Present Illness Consult date: 04/11/22 History of present illness: 66-year-old female came in the hospital after a couple weeks of intermittent fever. She was identified to have a urinary tract infection with sepsis. She required IV fluids and pressor agents. She is in the intensive care unit. She had a computed tomography scan and ultrasound identified 2 renal stones on the left side without hydronephrosis. The patient has a history of stones and required ureteroscopy, laser lithotripsy and stent placement on the right side by Dr. Ruiz some 12 years ago. She has not had any stones and sent. She has not had recurrent infection. She has had some intermittent left back ache. On computed tomography scan she has 2 medium size stones each about 8-9 mm. She also has a small left lower pole stone. There is no hydronephrosis noted either on the computed tomography scan nor the ultrasound. Review of Systems All systems: negative - Constitutional Denies fever, Denies weight loss - EENT Eyes: denies blurred vision Ears, nose, mouth and throat: Denies dysphagia - Cardiovascular Denies chest pain, Denies shortness of breath - Respiratory Denies cough, Denies 7 - Gastrointestinal Reports as per HPI - Genitourinary Genitourinary: Denies dysuria, Denies hematuria - Integumentary Denies rash, Denies unusual bruising - Neurological Denies headaches, Denies syncope - Hematologic/Lymphatic Denies easy bleeding, Denies easy bruising Past Medical History Past Medical History: Atrial Fibrillation, Diabetes Mellitus, Hyperlipidemia Additional Past Medical History / Comment(s): recent kidney infection History of Any Multi-Drug Resistant Organisms: None Reported Past Surgical History: Ablation Additional Past Surgical History / Comment(s): ablation Aug 18, 2021 Past Psychological History: No Psychological Hx Reported Smoking Status: Never smoker Past Alcohol Use History: Occasional Medications and Allergies Home Medications Medication Instructions Recorded Confirmed Type Lisinopril-Hctz 20-12.5 mg 1 tab PO DAILY 04/10/22 04/10/22 History [Zestoretic 20-12.5] Metoprolol Succinate (ER) [Toprol 100 mg PO DAILY 04/10/22 04/10/22 History Xl] Pioglitazone [Actos] 45 mg PO DAILY 04/10/22 04/10/22 History Simvastatin 40 mg PO DAILY 06/07/22 06/07/22 History Terbinafine [LamISIL] 250 mg PO DAILY 04/10/22 04/10/22 History traZODone HCL [Desyrel] 50 mg PO HS 04/10/22 04/10/22 History Allergies Allergy/AdvReac Type Severity Reaction Status Date / Time No Known Allergies Allergy Verified 04/10/22 07:40 Surgical - Exam Vital Signs Pulse 143 H 04/10/22 00:56 - General well developed, well nourished - Eyes normal ocular movement, no icteric - ENT no hearing loss, no congestion - Neck no masses, trachea midline - Respiratory normal respiratory effort, clear to auscultation - Abdomen Abdomen: soft, non tender, no guarding, no rigid, no rebound - Integumentary no rash, no abnormal pigmentation - Neurologic no disoriented, no combative - Psychiatric oriented to time, oriented to person, oriented to place, speech is normal, memory intact Results - Labs 04/10/22 02:59 04/10/22 11:17 Abnormal Lab Results - Last 24 Hours (Table) 04/10/22 04/10/22 04/10/22 Range/Units 11:17 12:56 16:44 Chloride 112 H (98-107) mmol/L Carbon Dioxide 15 L (22-30) mmol/L BUN 36 H (7-17) mg/dL Creatinine 1.95 H (0.52-1.04) mg/dL Glucose 177 H (74-99) mg/dL POC Glucose (mg/dL) 162 H 250 H (75-99) mg/dL Calcium 7.5 L (8.4-10.2) mg/dL Phosphorus 2.1 L (2.5-4.5) mg/dL 04/10/22 04/11/22 Range/Units 18:10 06:44 Chloride (98-107) mmol/L Carbon Dioxide (22-30) mmol/L BUN (7-17) mg/dL Creatinine (0.52-1.04) mg/dL Glucose (74-99) mg/dL POC Glucose (mg/dL) 261 H 278 H (75-99) mg/dL Calcium (8.4-10.2) mg/dL Phosphorus (2.5-4.5) mg/dL Diabetes panel 04/10/22 Range/Units 11:17 Sodium 138 (137-145) mmol/L Potassium 4.7 (3.5-5.1) mmol/L Chloride 112 H (98-107) mmol/L Carbon Dioxide 15 L (22-30) mmol/L BUN 36 H (7-17) mg/dL Creatinine 1.95 H (0.52-1.04) mg/dL Glucose 177 H (74-99) mg/dL Calcium 7.5 L (8.4-10.2) mg/dL Calcium panel 04/10/22 Range/Units 11:17 Calcium 7.5 L (8.4-10.2) mg/dL Phosphorus 2.1 L (2.5-4.5) mg/dL Pituitary panel 04/10/22 Range/Units 11:17 Sodium 138 (137-145) mmol/L Potassium 4.7 (3.5-5.1) mmol/L Chloride 112 H (98-107) mmol/L Carbon Dioxide 15 L (22-30) mmol/L BUN 36 H (7-17) mg/dL Creatinine 1.95 H (0.52-1.04) mg/dL Glucose 177 H (74-99) mg/dL Calcium 7.5 L (8.4-10.2) mg/dL Adrenal panel 04/10/22 Range/Units 11:17 Sodium 138 (137-145) mmol/L Potassium 4.7 (3.5-5.1) mmol/L Chloride 112 H (98-107) mmol/L Carbon Dioxide 15 L (22-30) mmol/L BUN 36 H (7-17) mg/dL Creatinine 1.95 H (0.52-1.04) mg/dL Glucose 177 H (74-99) mg/dL Calcium 7.5 L (8.4-10.2) mg/dL - Imaging CT scan - abdomen: report reviewed, image reviewed CT scan - pelvis: report reviewed, image reviewed US - kidney/bladder: report reviewed, image reviewed Assessment and Plan Assessment: Impression: Urinary tract infection with sepsis, left renal stones nonobstructing. Diabetes mellitus. Recommendations: Since he stones are nonobstructing there does not appear to be any immediate need for urologic intervention. Patient will need surgical removal the stones and given the volume and size of his stone my impression is that she will require a percutaneous nephrostolithotomy left to completely rid her of the stones which are probably infected. I will follow with you.
[2022-04-11 07:45] LABS: Basophils # (A) 0.1 k/uL (0-0.2); Basophils % (A) 0 %; Eosinophils # (A) 0.1 k/uL (0-0.7); Eosinophils % (A) 0 %; HCT 32.1 % (34.0-46.0); Lymphocytes # (A) 2.5 k/uL (1.0-4.8); Lymphocytes % (A) 9 %; MCH 30.3 pg (25.0-35.0); MCHC 32.7 g/dL (31.0-37.0); MCV 92.7 fL (80.0-100.0); Mean Platelet Volume 8.9; Monocytes # (A) 0.7 k/uL (0-1.0); Monocytes % (A) 3 %; Neutrophils # (A) 24.6 k/uL (1.3-7.7); Neutrophils % (A) 87 %; Platelet Count 370 k/uL (150-450); RBC 3.46 m/uL (3.80-5.40); WBC 28.3 k/uL (3.8-10.6)
[2022-04-11 07:50] LABS: HGB 10.5 gm/dL (11.4-16.0)
[2022-04-11 07:51] LABS: Albumin 2.7 g/dL (3.5-5.0); Calcium 7.6 mg/dL (8.4-10.2); Magnesium 1.7 mg/dL (1.6-2.3); Phosphorus 2.2 mg/dL (2.5-4.5); Potassium 3.4 mmol/L (3.5-5.1); Total Bilirubin 0.4 mg/dL (0.2-1.3); Total Protein 5.2 g/dL (6.3-8.2)
[2022-04-11] MEDS ORDERED: Magnesium Replacement Protocol 1 EACH MISC MISCELLANE PRN (08:00)
[2022-04-11] MEDS: DEXTROSE 5% IN WATER 1,000 ML with SODIUM BICARB (1 MEQ/ML) 150 ML IV SCH (08:02)
[2022-04-11] MEDS ORDERED: Potassium Replacement Protocol 1 EACH MISC MISCELLANE PRN (08:03)
[2022-04-11] MEDS: MAGNESIUM SULFATE-D5W PMX 1 GM in DEXTROSE/WATER 1 100ML.BAG IVPB SCH ×2 (08:19→09:46)
[2022-04-11] MEDS: NOREPINEPHRINE 32 MG in SODIUM CHLORIDE 0.9% 218 ML IV SCH (08:36)
[2022-04-11] MEDS ORDERED: ENOXAPARIN 40 MG/0.4 ML SYRINGE SQ SCH (09:00)
[2022-04-11] MEDS ORDERED: ENOXAPARIN 30 MG/0.3 ML SYRINGE SQ SCH (09:00)
--- NOTE | 2022-04-11 09:29 | P.PN ---
Subjective Progress Note Date: 04/11/22 This is a 66-year-old female patient, who lives in [facility] and her primary care physician is out of [place]. Over the past 2-3 weeks, the patient was having lethargy, weakness, chills, tiredness, fatigue and she was further investigated to her physician and she was told to have an E. coli UTI for which the patient was given a course of antibiotics patient with antibiotics for a total of 4 days patient up quitting the medication. She wasn't getting more nauseous. She ended up getting worse and her condition was decompensating as the patient was getting progressively more weak and tired. She came into the emergency department with the patient was found to be septic, she had an acute kidney injury with a creatinine of 2.0 and some mild lactic acidosis. UA was abnormal and the UTI was suspected. CAT scan of the abdomen and pelvis was done and it showed kidney stones and some swelling and edema of the left kidney and the patient had couple of stones in the left renal collecting system. The patient was started on IV Zosyn. The patient was given a total of 5 L of IV fluid normal saline and the blood pressure was soft and following that the patient was started on pressors and currently she is on norepinephrine infusion through a right IJ triple-lumen catheter running at 0.05 mcg/kg per minute. Urine output is adequate for now. Note that 2 weeks ago, the patient also had a bout of hematuria probably related to her kidney stones. She is diabetic. She has hypertension and hyperlipidemia as comorbid conditions. The baseline creatinine is not known. It'll come on evaluation in the ED, the patient was already feeling better. She had no respiratory distress. No cough sputum production chest tightness or wheezing. No other issues for now. No focal neurological deficits. No headaches. No neck stiffness. Mental status is improved. The lactic acid level is also improving. Creatinine is slightly lower. BNP level is 323. LFTs were essentially within normal limits. 2021, the patient is being seen for a follow-up. The patient is currently in the intensive care unit. She is awake and alert and she is sitting up on a chair and she has no specific complaints. The patient was seen by urology yesterday for a left adrenal kidney stone and the stone was felt a nonobstructive and there was no need for immediate intervention. Nevertheless, his impression was that the patient may require a percutaneous nephrostolithotomy once the infection sepsis has improved. In any rate, the patient is currently on room air oxygen. IV fluids are running at the rate of normal saline at the rate of 75 mL an hour. We'll put the patient on on a bicarb infusion yesterday and his serum bicarbonate is currently up to 27 and the bicarb infusion will be discontinued. The patient is also demonstrating from of the renal function. Creatinine is down to 1.2 and the patient is being seen by nephrology. The sodium level is currently at 140 with a potassium level of 3.5. BUN is at 21 with a creatinine of 1.2. The white cell count is currently at 28.3 with a hemoglobin of 10.5. Cultures have been still pending for now. Meanwhile, the patient remains on IV Zosyn . He was dynamically stable and she is currently off pressors and this was a continued discontinued around 7:00 this morning. She is awake and alert. No confusion. No altered mentation. Objective - Vital Signs Vital signs: Vital Signs Temp 98.3 F 04/11/22 08:00 Pulse 101 H 04/11/22 08:00 Resp 20 04/11/22 08:00 BP 100/51 04/11/22 08:00 Pulse Ox 95 04/11/22 08:00 FiO2 Intake & Output 04/10/22 04/11/22 04/11/22 18:59 06:59 18:59 Intake Total 15.923 2514.164 450.562 Output Total 2800 2300 575 Balance -2784.077 214.164 -124.438 Weight 71.9 kg 108.9 kg Intake: IV 1675 350 Dextrose 5% in Water 1, 1500 250 000 ml @ 125 mls/hr IV . Q9H12M [facility] with Sodium Bicarb (1 Meq/ml) 150 ml Rx#:[id number] Piperacillin-Tazobactam 3 175 100 .375 gm In Sodium Chloride 0.9% 100 ml @ 25 mls/hr IVPB Q8HR [facility] Rx# :[id number] Intake, IV Titration 15.923 19.164 100.562 Amount Magnesium Sulfate-D5w Pmx 100 1 gm In Dextrose/Water 1 100ml.bag @ 100 mls/hr IVPB Q1H [facility] Rx#: [id number] Norepinephrine 32 mg In 15.923 19.164 0.562 Sodium Chloride 0.9% 218 ml @ 0.05 MCG/KG/MIN 1. 685 mls/hr IV .Q24H [facility] Rx#:[id number] Oral 820 Output: Urine 2800 2300 575 Other: Voiding Method Indwelling Catheter Indwelling Catheter - Exam Gen: in no apparent distress, resting comfortably in bed Eyes: PERRL, no scleral injection or icterus HENT: normocephalic, atraumatic, good hearing acuity, moist mucous membranes. The patient has a right IJ triple-lumen catheter in place Neck: no tracheal deviation, full range of motion Lungs were clear to auscultation and percussion, and with normal diaphragmatic excursion. No wheezes or rales were noted. Cardiac exam revealed the PMI to be normally situated and sized. The rhythm was regular and no extrasystoles were noted during several minutes of auscultation. The first and second heart sounds were normal and physiologic splitting of the second heart sound was noted. There were no murmurs, rubs, clicks, or gallops. Abdominal exam revealed normal bowel sounds. The abdomen was soft, non-tender, and without masses, organomegaly, or appreciable enlargement of the abdominal aorta. : no suprapubic tenderness, left-sided CVAT, fenton catheter is present MSK: no clubbing, no cyanosis, no noted contractures of extremities Skin: no noted rashes, petechiae; temperature of skin is appropriate Neuro: moving all extremities without signs of weakness, CN II-XII intact Psych: cooperative, euthymic mood, insight and judgment intact - Labs CBC & Chem 7: 04/11/22 06:36 04/11/22 06:36 Labs: Abnormal Lab Results - Last 24 Hours (Table) 04/10/22 04/10/22 04/10/22 Range/Units 11:17 12:56 16:44 WBC (3.8-10.6) k/uL RBC (3.80-5.40) m/uL Hgb (11.4-16.0) gm/dL Hct (34.0-46.0) % Potassium (3.5-5.1) mmol/L Chloride 112 H (98-107) mmol/L Carbon Dioxide 15 L (22-30) mmol/L BUN 36 H (7-17) mg/dL Creatinine 1.95 H (0.52-1.04) mg/dL Glucose 177 H (74-99) mg/dL POC Glucose (mg/dL) 162 H 250 H (75-99) mg/dL Calcium 7.5 L (8.4-10.2) mg/dL Phosphorus 2.1 L (2.5-4.5) mg/dL Total Protein (6.3-8.2) g/dL Albumin (3.5-5.0) g/dL 04/10/22 04/11/22 04/11/22 Range/Units 18:10 06:36 06:36 WBC 28.3 H (3.8-10.6) k/uL RBC 3.46 L (3.80-5.40) m/uL Hgb 10.5 L D (11.4-16.0) gm/dL Hct 32.1 L (34.0-46.0) % Potassium 3.4 L (3.5-5.1) mmol/L Chloride (98-107) mmol/L Carbon Dioxide (22-30) mmol/L BUN 21 H (7-17) mg/dL Creatinine 1.21 H (0.52-1.04) mg/dL Glucose 257 H (74-99) mg/dL POC Glucose (mg/dL) 261 H (75-99) mg/dL Calcium 7.6 L (8.4-10.2) mg/dL Phosphorus 2.2 L (2.5-4.5) mg/dL Total Protein 5.2 L (6.3-8.2) g/dL Albumin 2.7 L (3.5-5.0) g/dL 04/11/22 Range/Units 06:44 WBC (3.8-10.6) k/uL RBC (3.80-5.40) m/uL Hgb (11.4-16.0) gm/dL Hct (34.0-46.0) % Potassium (3.5-5.1) mmol/L Chloride (98-107) mmol/L Carbon Dioxide (22-30) mmol/L BUN (7-17) mg/dL Creatinine (0.52-1.04) mg/dL Glucose (74-99) mg/dL POC Glucose (mg/dL) 278 H (75-99) mg/dL Calcium (8.4-10.2) mg/dL Phosphorus (2.5-4.5) mg/dL Total Protein (6.3-8.2) g/dL Albumin (3.5-5.0) g/dL Assessment and Plan Plan: Acute complicated left-sided pyelonephritis. The patient has obstructive uropathy with nephrolithiasis within the left urinary system/collecting ducts with some hydronephrosis. Patient was seen by urology. The patient is being planned for outpatient intervention regarding kidney stones. No this of any acute obstruction. The patient is being treated with a combination of fluids and antibiotics and pressors and currently she is off pressors. Septic shock secondary to above, received fluids and pressors and antibiotics, improved and the culture is still pending for now Recent UTI related to E. coli Hematuria, likely secondary to nephrolithiasis Acute kidney injury secondary to above , improving Non-anion gap metabolic acidosis secondary to above, recovered Hypotension secondary to above, improving History of atrial fibrillation/V. tach post-ablation mentioned on long-term and to coagulation with Eliquis Hypertension Hyperlipidemia Diabetes mellitus Plan Continue IV fluids and switch this patient normal saline at the rate of 75 mL an hour Continue IV Zosyn Urology consultation appreciated Currently off pressors Monitor renal function Awaiting urine cultures and blood cultures Off pressors Will restart beta blockers and long-term anticoagulation as of tomorrow. Transfer out of the ICU Hold anticoagulation for now
[2022-04-11] MEDS: SODIUM CHLORIDE 0.9% 1,000 ML IV SCH ×2 (09:50→22:20)
--- NOTE | 2022-04-11 10:01 | P.PN ---
Subjective Patient is seen in follow-up for acute kidney injury. Renal function improving. Off vasopressors. Nonoliguric. Oral intake fair. No vomiting or diarrhea. Vital signs are stable. General: Awake and alert. No acute distress. HEENT: Head exam is unremarkable. LUNGS: Breath sounds decreased. HEART: Rate and Rhythm are regular. ABDOMEN: Soft, no distention. EXTREMITITES: No edema. Objective - Vital Signs Vital signs: Vital Signs Temp 98.3 F 04/11/22 08:00 Pulse 101 H 04/11/22 08:00 Resp 20 04/11/22 08:00 BP 100/51 04/11/22 08:00 Pulse Ox 95 04/11/22 08:00 FiO2 Intake & Output 04/10/22 04/11/22 04/11/22 18:59 06:59 18:59 Intake Total 15.923 2514.164 450.562 Output Total 2800 2300 575 Balance -2784.077 214.164 -124.438 Weight 71.9 kg 108.9 kg Intake: IV 1675 350 Dextrose 5% in Water 1, 1500 250 000 ml @ 125 mls/hr IV . Q9H12M [facility] with Sodium Bicarb (1 Meq/ml) 150 ml Rx#:[id number] Piperacillin-Tazobactam 3 175 100 .375 gm In Sodium Chloride 0.9% 100 ml @ 25 mls/hr IVPB Q8HR [facility] Rx# :[id number] Intake, IV Titration 15.923 19.164 100.562 Amount Magnesium Sulfate-D5w Pmx 100 1 gm In Dextrose/Water 1 100ml.bag @ 100 mls/hr IVPB Q1H [facility] Rx#: [id number] Norepinephrine 32 mg In 15.923 19.164 0.562 Sodium Chloride 0.9% 218 ml @ 0.05 MCG/KG/MIN 1. 685 mls/hr IV .Q24H [facility] Rx#:[id number] Oral 820 Output: Urine 2800 2300 575 Other: Voiding Method Indwelling Catheter Indwelling Catheter - Labs CBC & Chem 7: 04/11/22 06:36 04/11/22 06:36 Labs: Abnormal Lab Results - Last 24 Hours (Table) 04/10/22 04/10/22 04/10/22 Range/Units 11:17 12:56 16:44 WBC (3.8-10.6) k/uL RBC (3.80-5.40) m/uL Hgb (11.4-16.0) gm/dL Hct (34.0-46.0) % Potassium (3.5-5.1) mmol/L Chloride 112 H (98-107) mmol/L Carbon Dioxide 15 L (22-30) mmol/L BUN 36 H (7-17) mg/dL Creatinine 1.95 H (0.52-1.04) mg/dL Glucose 177 H (74-99) mg/dL POC Glucose (mg/dL) 162 H 250 H (75-99) mg/dL Calcium 7.5 L (8.4-10.2) mg/dL Phosphorus 2.1 L (2.5-4.5) mg/dL Total Protein (6.3-8.2) g/dL Albumin (3.5-5.0) g/dL 04/10/22 04/11/22 04/11/22 Range/Units 18:10 06:36 06:36 WBC 28.3 H (3.8-10.6) k/uL RBC 3.46 L (3.80-5.40) m/uL Hgb 10.5 L D (11.4-16.0) gm/dL Hct 32.1 L (34.0-46.0) % Potassium 3.4 L (3.5-5.1) mmol/L Chloride (98-107) mmol/L Carbon Dioxide (22-30) mmol/L BUN 21 H (7-17) mg/dL Creatinine 1.21 H (0.52-1.04) mg/dL Glucose 257 H (74-99) mg/dL POC Glucose (mg/dL) 261 H (75-99) mg/dL Calcium 7.6 L (8.4-10.2) mg/dL Phosphorus 2.2 L (2.5-4.5) mg/dL Total Protein 5.2 L (6.3-8.2) g/dL Albumin 2.7 L (3.5-5.0) g/dL 04/11/22 Range/Units 06:44 WBC (3.8-10.6) k/uL RBC (3.80-5.40) m/uL Hgb (11.4-16.0) gm/dL Hct (34.0-46.0) % Potassium (3.5-5.1) mmol/L Chloride (98-107) mmol/L Carbon Dioxide (22-30) mmol/L BUN (7-17) mg/dL Creatinine (0.52-1.04) mg/dL Glucose (74-99) mg/dL POC Glucose (mg/dL) 278 H (75-99) mg/dL Calcium (8.4-10.2) mg/dL Phosphorus (2.5-4.5) mg/dL Total Protein (6.3-8.2) g/dL Albumin (3.5-5.0) g/dL Assessment and Plan Plan: Assessment: 1. Acute kidney injury secondary to ATN secondary to septic shock. Creatinine 2.02 on admission - 1.21 today. Unknown baseline renal function. Mild renal collecting system fullness noted on CAT scan. No hydronephrosis noted on kidney ultrasound. 2. Metabolic acidosis secondary to acute kidney injury and lactic acidosis. Improved with bicarbonate drip. 3. Septic shock s/p Levophed. Possibly urinary source versus left foot infection. 4. Hypovolemic hyponatremia. 5. Diabetes mellitus. 6. Hypomagnesemia from poor intake and diuretic. Replaced. 7. Hypophosphatemia from poor intake. 8. Hypokalemia from poor intake. Plan: Stop bicarb drip. Start normal saline at 75 mL an hour. Replace potassium and magnesium. I will also give her dose of K-Phos today. Hold antihypertensives and diuretics. Follow-up cultures. Continue to monitor renal function and urine output.
[2022-04-11 10:24] VITALS: BMI 46.8
[2022-04-11] MEDS: POTASSIUM CHLORIDE 20 MEQ in WATER FOR INJECTION 1 100ML.BAG IVPB SCH ×2 (10:51→11:53)
[2022-04-11 11:34] LABS: Glucose,Whole Blood 256 mg/dL (75-99)
[2022-04-11 13:40] LABS: RBC Morphology Normal
[2022-04-11 16:48] LABS: Glucose,Whole Blood 120 mg/dL (75-99)
--- NOTE | 2022-04-11 17:04 | P.PN ---
Subjective Progress Note Date: 04/11/22 (delayed charting seen at 0945) Principal diagnosis: fevers Patient is a 66-year-old woman with paroxysmal atrial fibrillation not on anticpagulation at baseline, HLD, HTN, DM who presented with generalized weakness, fevers, and left flank pain.Sealex had been diagnosed with urinary tract infection approximately 2 weeks ago and given cephalexin 250 mg 3 times a day, after 4 days of taking this medication, she discontinued it because it was making her feel nauseous. In the emergency dpeartment she underwent an extensive evaluation. Her T-max was 100.6, 97/47, 110 heart rate, 97% on room air. Labatoray analysis was consistent with hyponatremia to 131, carbon dioxide of 16, BUN/creatinine of 46/2.02, Initial lactic acid was 3.1. Liver function tests show elevated alkaline phosphatase to 171, total protein of 5.6, albumin 3.0. BNP was 323, troponin was less than 0.12. After receiving 4 L of fluid bolus her lactic acid improved to 1.2, Her BP remained low and she was started on levophed. She was admitted to the ICU for septic shock, nephrology and pu lmonary were consulted. She initially was given a dose of ceftriaxone and then was started on Zosyn. CT abdomen and pelvis showed anasarca, ureter lithiasis on the left without obstructive stones, and perinephric edema on the left kidney. Head CT showed no acute process but mild posterior parietal lobe hypodensity. She underwent a renal bladder ultrasound which shows left renal pelvic stone with bilateral perinephric fat stranding. Due to her acidosis required D5W with 3 A of bicarb which resulted in some hyperglycemia. She was able to be taken off of vasopressor agents by 04/11/22. Patient seen and examined at bedside. She is feeling much better than yesterday. She denies any significant back pain. She still has a low appetite but no nausea or vomiting. She denies any chest discomfort or shortness of breath. We discussed the importance of calling her physician before discontin uing antibiotics in the future. General: non toxic, no distress, appears at stated age Derm: warm, dry Head: atraumatic, normocephalic, symmetric Eyes: EOMI, no lid lag, anicteric sclera Mouth: no lip lesion, mucus membranes moist Cardiovascular: S1S2 reg, no murmur, positive posterior tibial pulse bilateral, Lungs: CTA bilateral, no rhonchi, no rales , no accessory muscle use Abdominal: soft, nontender to palpation, no guarding, no appreciable organomegaly Ext: no gross muscle atrophy, no edema, no contractures Neuro: CN II-XI grossly intact, no focal neuro deficits Psych: Alert, oriented, appropriate affect Assessment/Plan: Septic shock secondary to left-sided pyelonephritis Acute renal failure secondary to ATN -UCx results obtained from PCPs office, patient failed cephalexin outpatient -Pulmonary and nephrology recs appreciated -IV fluids transitioned to NS -Conintue zosyn -Morphine when necessary for pain control -Zofran when necessary for nausea control - hold lisinopril and HCTZ Diabetes type 2 - hold actos - follow BS - SSI Paroxysmal atrial fibrillation Hypertension Hyperlipidemia - conitnue current medications DVT prophylaxis: Lovenox Discussed with: Patient, nursing Anticipated discharge: home Anticipated discharge place: in 2-3 days A total of 35 minutes was spent on the care of this complex patient more than 50% of the time was spent in counseling and care coordination. Objective - Vital Signs Vital signs: Vital Signs Temp 98.0 F 04/11/22 16:00 Pulse 99 04/11/22 16:00 Resp 18 04/11/22 16:00 BP 102/72 04/11/22 16:00 Pulse Ox 94 L 04/11/22 16:00 FiO2 Intake & Output 04/10/22 04/11/22 04/11/22 18:59 06:59 18:59 Intake Total 15.923 2514.164 1450.562 Output Total 2800 2300 2275 Balance -2784.077 214.164 -824.438 Weight 71.9 kg 108.9 kg 108.9 kg Intake: IV 1675 450 Dextrose 5% in Water 1, 1500 250 000 ml @ 125 mls/hr IV . Q9H12M [facility] with Sodium Bicarb (1 Meq/ml) 150 ml Rx#:[id number] Piperacillin-Tazobactam 3 175 200 .375 gm In Sodium Chloride 0.9% 100 ml @ 25 mls/hr IVPB Q8HR [facility] Rx# :[id number] Intake, IV Titration 15.923 19.164 1000.562 Amount Magnesium Sulfate-D5w Pmx 200 1 gm In Dextrose/Water 1 100ml.bag @ 100 mls/hr IVPB Q1H [facility] Rx#: [id number] Norepinephrine 32 mg In 15.923 19.164 0.562 Sodium Chloride 0.9% 218 ml @ 0.05 MCG/KG/MIN 1. 685 mls/hr IV .Q24H [facility] Rx#:[id number] Potassium Chloride 20 meq 200 In Water For Injection 1 100ml.bag @ 50 mls/hr IVPB Q2H [facility] Rx#: [id number] Sodium Chloride 0.9% 1, 600 000 ml @ 75 mls/hr IV . [id number] [facility] Rx#:[id number] Oral 820 Output: Urine 2800 2300 2275 Other: Voiding Method Indwelling Catheter Indwelling Catheter # Bowel Movements 1 - Labs CBC & Chem 7: 04/11/22 06:36 04/11/22 06:36 Labs: Abnormal Lab Results - Last 24 Hours (Table) 04/10/22 04/11/22 04/11/22 Range/Units 18:10 06:36 06:36 WBC 28.3 H (3.8-10.6) k/uL RBC 3.46 L (3.80-5.40) m/uL Hgb 10.5 L D (11.4-16.0) gm/dL Hct 32.1 L (34.0-46.0) % Neutrophils # 24.6 H (1.3-7.7) k/uL Potassium 3.4 L (3.5-5.1) mmol/L BUN 21 H (7-17) mg/dL Creatinine 1.21 H (0.52-1.04) mg/dL Glucose 257 H (74-99) mg/dL POC Glucose (mg/dL) 261 H (75-99) mg/dL Calcium 7.6 L (8.4-10.2) mg/dL Phosphorus 2.2 L (2.5-4.5) mg/dL Total Protein 5.2 L (6.3-8.2) g/dL Albumin 2.7 L (3.5-5.0) g/dL 04/11/22 04/11/22 04/11/22 Range/Units 06:44 11:33 16:46 WBC (3.8-10.6) k/uL RBC (3.80-5.40) m/uL Hgb (11.4-16.0) gm/dL Hct (34.0-46.0) % Neutrophils # (1.3-7.7) k/uL Potassium (3.5-5.1) mmol/L BUN (7-17) mg/dL Creatinine (0.52-1.04) mg/dL Glucose (74-99) mg/dL POC Glucose (mg/dL) 278 H 256 H 120 H (75-99) mg/dL Calcium (8.4-10.2) mg/dL Phosphorus (2.5-4.5) mg/dL Total Protein (6.3-8.2) g/dL Albumin (3.5-5.0) g/dL Microbiology - Last 24 Hours (Table) 04/10/22 04:40 Urine Culture - Preliminary Urine,Catheterized 04/10/22 11:17 Blood Culture - Preliminary Blood No Growth after 24 hours
[2022-04-12 06:55] LABS: Glucose,Whole Blood 138 mg/dL (75-99)
[2022-04-12 06:57] LABS: HCT 33.7 % (34.0-46.0); HGB 10.7 gm/dL (11.4-16.0); MCH 29.6 pg (25.0-35.0); MCHC 31.9 g/dL (31.0-37.0); Mean Platelet Volume 8.7; Platelet Count 352 k/uL (150-450); RBC 3.62 m/uL (3.80-5.40); RDW 13.4 % (11.5-15.5); WBC 23.3 k/uL (3.8-10.6)
[2022-04-12] MEDS: INSULIN ASPART (NovoLOG) 100 UNIT/ML VIAL SQ SCH ×3 (06:59→17:00)
[2022-04-12 07:13] LABS: Calcium 7.9 mg/dL (8.4-10.2); Magnesium 1.8 mg/dL (1.6-2.3); Phosphorus 2.8 mg/dL (2.5-4.5); Potassium 3.9 mmol/L (3.5-5.1)
[2022-04-12] MEDS ORDERED: VANCOMYCIN IV PER PHARMACY 1 EACH MISC MISCELLANE PRN (07:51)
[2022-04-12] MEDS: ENOXAPARIN 40 MG/0.4 ML SYRINGE SQ SCH (08:09)
[2022-04-12] MEDS: PIPERACILLIN-TAZOBACTAM 3.375 GM in SODIUM CHLORIDE 0.9% 100 ML IVPB SCH ×3 (08:09→23:08)
[2022-04-12] MEDS ORDERED: METOPROLOL SUCCINATE (ER) 100 MG TAB.ER.24H PO SCH (09:00)
[2022-04-12] MEDS ORDERED: VANCOMYCIN 1,500 MG in SODIUM CHLORIDE 0.9% 250 ML IVPB ONE (09:00)
--- NOTE | 2022-04-12 09:43 | P.PN ---
Subjective Patient is seen in follow-up for acute kidney injury. Renal function improving. Nonoliguric. Oral intake fair. No vomiting or diarrhea. Vital signs are stable. General: Awake and alert. No acute distress. HEENT: Head exam is unremarkable. LUNGS: Breath sounds decreased. HEART: Rate and Rhythm are regular. ABDOMEN: Soft, no distention. EXTREMITITES: No edema. Objective - Vital Signs Vital signs: Vital Signs Temp 98.4 F 04/12/22 04:00 Pulse 92 04/12/22 07:00 Resp 14 04/12/22 07:00 BP 124/78 04/12/22 07:00 Pulse Ox 96 04/12/22 08:38 FiO2 Intake & Output 04/11/22 04/12/22 04/12/22 18:59 06:59 18:59 Intake Total 8383.242 2733 75 Output Total 2875 1575 75 Balance -1274.438 -575 0 Weight 108.9 kg 72.6 kg Intake: IV 450 100 Dextrose 5% in Water 1, 250 000 ml @ 125 mls/hr IV . Q9H12M [facility] with Sodium Bicarb (1 Meq/ml) 150 ml Rx#:[id number] Piperacillin-Tazobactam 3 200 100 .375 gm In Sodium Chloride 0.9% 100 ml @ 25 mls/hr IVPB Q8HR [facility] Rx# :[id number] Intake, IV Titration 1150.562 900 75 Amount Magnesium Sulfate-D5w Pmx 200 1 gm In Dextrose/Water 1 100ml.bag @ 100 mls/hr IVPB Q1H [facility] Rx#: [id number] Norepinephrine 32 mg In 0.562 Sodium Chloride 0.9% 218 ml @ 0.05 MCG/KG/MIN 1. 685 mls/hr IV .Q24H [facility] Rx#:[id number] Potassium Chloride 20 meq 200 In Water For Injection 1 100ml.bag @ 50 mls/hr IVPB Q2H [facility] Rx#: [id number] Sodium Chloride 0.9% 1, 750 900 75 000 ml @ 75 mls/hr IV . [id number] [facility] Rx#:[id number] Output: Urine 2875 1575 75 Other: Voiding Method Indwelling Catheter Indwelling Catheter # Bowel Movements 1 - Labs CBC & Chem 7: 04/12/22 03:22 04/12/22 03:22 Labs: Abnormal Lab Results - Last 24 Hours (Table) 04/11/22 04/11/22 04/11/22 Range/Units 06:36 11:33 16:46 WBC (3.8-10.6) k/uL RBC (3.80-5.40) m/uL Hgb (11.4-16.0) gm/dL Hct (34.0-46.0) % Neutrophils # 24.6 H (1.3-7.7) k/uL Chloride (98-107) mmol/L Creatinine (0.52-1.04) mg/dL Glucose (74-99) mg/dL POC Glucose (mg/dL) 256 H 120 H (75-99) mg/dL Calcium (8.4-10.2) mg/dL 04/12/22 04/12/22 04/12/22 Range/Units 03:22 03:22 06:53 WBC 23.3 H (3.8-10.6) k/uL RBC 3.62 L (3.80-5.40) m/uL Hgb 10.7 L (11.4-16.0) gm/dL Hct 33.7 L (34.0-46.0) % Neutrophils # (1.3-7.7) k/uL Chloride 108 H (98-107) mmol/L Creatinine 1.09 H (0.52-1.04) mg/dL Glucose 128 H (74-99) mg/dL POC Glucose (mg/dL) 138 H (75-99) mg/dL Calcium 7.9 L (8.4-10.2) mg/dL Microbiology - Last 24 Hours (Table) 04/10/22 04:40 Urine Culture - Preliminary Urine,Catheterized 04/10/22 11:17 Blood Culture - Preliminary Blood No Growth after 24 hours Assessment and Plan Plan: Assessment: 1. Acute kidney injury secondary to ATN secondary to septic shock. Creatinine 2.02 on admission - 1.09 today. Unknown baseline renal function. Mild renal collecting system fullness noted on CAT scan. No hydronephrosis noted on kidney ultrasound. 2. Metabolic acidosis secondary to acute kidney injury and lactic acidosis. Improved with bicarbonate drip. 3. Septic shock s/p Levophed. Possibly urinary source versus left foot infection. 4. Hypovolemic hyponatremia. Resolved. 5. Diabetes mellitus. 6. Hypomagnesemia from poor intake and diuretic. Replaced. Improved. 7. Hypophosphatemia from poor intake. Replaced. 8. Hypokalemia from poor intake. Replaced. Better. Plan: Maintain normal saline at 75 mL an hour. Hold antihypertensives and diuretics. Follow-up cultures. Continue to monitor renal function and urine output. DC Elias catheter.
--- NOTE | 2022-04-12 09:53 | P.PN ---
Subjective Progress Note Date: 04/12/22 This is a 66-year-old female patient, who lives in [facility] and her primary care physician is out of [place]. Over the past 2-3 weeks, the patient was having lethargy, weakness, chills, tiredness, fatigue and she was further investigated to her physician and she was told to have an E. coli UTI for which the patient was given a course of antibiotics patient with antibiotics for a total of 4 days patient up quitting the medication. She wasn't getting more nauseous. She ended up getting worse and her condition was decompensating as the patient was getting progressively more weak and tired. She came into the emergency department with the patient was found to be septic, she had an acute kidney injury with a creatinine of 2.0 and some mild lactic acidosis. UA was abnormal and the UTI was suspected. CAT scan of the abdomen and pelvis was done and it showed kidney stones and some swelling and edema of the left kidney and the patient had couple of stones in the left renal collecting system. The patient was started on IV Zosyn. The patient was given a total of 5 L of IV fluid normal saline and the blood pressure was soft and following that the patient was started on pressors and currently she is on norepinephrine infusion through a right IJ triple-lumen catheter running at 0.05 mcg/kg per minute. Urine output is adequate for now. Note that 2 weeks ago, the patient also had a bout of hematuria probably related to her kidney stones. She is diabetic. She has hypertension and hyperlipidemia as comorbid conditions. The baseline creatinine is not known. It'll come on evaluation in the ED, the patient was already feeling better. She had no respiratory distress. No cough sputum production chest tightness or wheezing. No other issues for now. No focal neurological deficits. No headaches. No neck stiffness. Mental status is improved. The lactic acid level is also improving. Creatinine is slightly lower. BNP level is 323. LFTs were essentially within normal limits. 2021, the patient is being seen for a follow-up. The patient is currently in the intensive care unit. She is awake and alert and she is sitting up on a chair and she has no specific complaints. The patient was seen by urology yesterday for a left adrenal kidney stone and the stone was felt a nonobstructive and there was no need for immediate intervention. Nevertheless, his impression was that the patient may require a percutaneous nephrostolithotomy once the infection sepsis has improved. In any rate, the patient is currently on room air oxygen. IV fluids are running at the rate of normal saline at the rate of 75 mL an hour. We'll put the patient on on a bicarb infusion yesterday and his serum bicarbonate is currently up to 27 and the bicarb infusion will be discontinued. The patient is also demonstrating from of the renal function. Creatinine is down to 1.2 and the patient is being seen by nephrology. The sodium level is currently at 140 with a potassium level of 3.5. BUN is at 21 with a creatinine of 1.2. The white cell count is currently at 28.3 with a hemoglobin of 10.5. Cultures have been still pending for now. Meanwhile, the patient remains on IV Zosyn . He was dynamically stable and she is currently off pressors and this was a continued discontinued around 7:00 this morning. She is awake and alert. No confusion. No altered mentation. 2021, the patient is doing extremely well. She is currently off pressors. Renal function is improved and we are still awaiting labs from today. The patient remains on IV Zosyn and vancomycin.. She was taken off the bicarb infusion and the patient is currently on normal saline at the rate of 75 mL an hour. vancomycin was ordered today by the hospitalist. The exact reason is not clear. The patient was slightly tachycardic this morning and the patient this was worked up further lactic acid level was checked and it basket turner to be at 1.4 and vancomycin was added to her regimen. The patient was having some nausea also and was having some headache and this essentially recovered. Overall fluid balance is been -1.8 L since yesterday. The patient is doing well. She is afebrile. She hasn't spiked any temperatures. Cultures as still negative for now. She is on room air oxygen. No nausea. No vomiting. No emesis. No abdominal pain. No flank pain. No hematuria. No other significant events overnight. Awaiting follow-up labs from today. The white cell count was already down trending from yesterday. Objective - Vital Signs Vital signs: Vital Signs Temp 98.4 F 04/12/22 04:00 Pulse 92 04/12/22 07:00 Resp 14 04/12/22 07:00 BP 124/78 04/12/22 07:00 Pulse Ox 96 04/12/22 08:38 FiO2 Intake & Output 04/11/22 04/12/22 04/12/22 18:59 06:59 18:59 Intake Total 9379.771 6388 75 Output Total 2875 1575 75 Balance -1274.438 -575 0 Weight 108.9 kg 72.6 kg Intake: IV 450 100 Dextrose 5% in Water 1, 250 000 ml @ 125 mls/hr IV . Q9H12M DANIELA with Sodium Bicarb (1 Meq/ml) 150 ml Rx#:[id number] Piperacillin-Tazobactam 3 200 100 .375 gm In Sodium Chloride 0.9% 100 ml @ 25 mls/hr IVPB Q8HR DANIELA Rx# :[id number] Intake, IV Titration 1150.562 900 75 Amount Magnesium Sulfate-D5w Pmx 200 1 gm In Dextrose/Water 1 100ml.bag @ 100 mls/hr IVPB Q1H DANIELA Rx#: [id number] Norepinephrine 32 mg In 0.562 Sodium Chloride 0.9% 218 ml @ 0.05 MCG/KG/MIN 1. 685 mls/hr IV .Q24H DANIELA Rx#:[id number] Potassium Chloride 20 meq 200 In Water For Injection 1 100ml.bag @ 50 mls/hr IVPB Q2H DANIELA Rx#: [id number] Sodium Chloride 0.9% 1, 750 900 75 000 ml @ 75 mls/hr IV . [id number] DANIELA Rx#:[id number] Output: Urine 2875 1575 75 Other: Voiding Method Indwelling Catheter Indwelling Catheter # Bowel Movements 1 - Exam Gen: in no apparent distress, resting comfortably in bed Eyes: PERRL, no scleral injection or icterus HENT: normocephalic, atraumatic, good hearing acuity, moist mucous membranes. The patient has a right IJ triple-lumen catheter in place Neck: no tracheal deviation, full range of motion Lungs were clear to auscultation and percussion, and with normal diaphragmatic excursion. No wheezes or rales were noted. Cardiac exam revealed the PMI to be normally situated and sized. The rhythm was regular and no extrasystoles were noted during several minutes of auscultation. The first and second heart sounds were normal and physiologic splitting of the second heart sound was noted. There were no murmurs, rubs, clicks, or gallops. Abdominal exam revealed normal bowel sounds. The abdomen was soft, non-tender, and without masses, organomegaly, or appreciable enlargement of the abdominal a razia. : no suprapubic tenderness, left-sided CVAT, fenton catheter is present MSK: no clubbing, no cyanosis, no noted contractures of extremities Skin: no noted rashes, petechiae; temperature of skin is appropriate Neuro: moving all extremities without signs of weakness, CN II-XII intact Psych: cooperative, euthymic mood, insight and judgment intact - Labs CBC & Chem 7: 04/12/22 03:22 04/12/22 03:22 Labs: Abnormal Lab Results - Last 24 Hours (Table) 04/11/22 04/11/22 04/11/22 Range/Units 06:36 11:33 16:46 WBC (3.8-10.6) k/uL RBC (3.80-5.40) m/uL Hgb (11.4-16.0) gm/dL Hct (34.0-46.0) % Neutrophils # 24.6 H (1.3-7.7) k/uL Chloride (98-107) mmol/L Creatinine (0.52-1.04) mg/dL Glucose (74-99) mg/dL POC Glucose (mg/dL) 256 H 120 H (75-99) mg/dL Calcium (8.4-10.2) mg/dL 04/12/22 04/12/22 04/12/22 Range/Units 03:22 03:22 06:53 WBC 23.3 H (3.8-10.6) k/uL RBC 3.62 L (3.80-5.40) m/uL Hgb 10.7 L (11.4-16.0) gm/dL Hct 33.7 L (34.0-46.0) % Neutrophils # (1.3-7.7) k/uL Chloride 108 H (98-107) mmol/L Creatinine 1.09 H (0.52-1.04) mg/dL Glucose 128 H (74-99) mg/dL POC Glucose (mg/dL) 138 H (75-99) mg/dL Calcium 7.9 L (8.4-10.2) mg/dL Microbiology - Last 24 Hours (Table) 04/10/22 04:40 Urine Culture - Preliminary Urine,Catheterized 04/10/22 11:17 Blood Culture - Preliminary Blood No Growth after 24 hours Assessment and Plan Plan: Acute complicated left-sided pyelonephritis. The patient has obstructive uropathy with nephrolithiasis within the left urinary system/collecting ducts with some hydronephrosis. Patient was seen by urology. The patient is being planned for outpatient intervention regarding kidney stones. No this of any acute obstruction. The patient is being treated with a combination of fluids and antibiotics and pressors and currently she is off pressors. Edges are all negative and the patient remains on IV Zosyn. Awaiting a follow-up white cell count from today. The lactic acid level was down to 1.4. Patient is producing adequate amount of urine output. Septic shock secondary to above, received fluids and pressors and antibiotics, improved and the culture is still pending for now, clinically improved on no pressors Recent UTI related to E. coli Hematuria, likely secondary to nephrolithiasis Acute kidney injury secondary to above , improving Non-anion gap metabolic acidosis secondary to above, recovered Hypotension secondary to above, improving History of atrial fibrillation/V. tach post-ablation mentioned on long-term and to coagulation with Eliquis Hypertension Hyperlipidemia Diabetes mellitus Plan Continue IV fluids and switch this patient normal saline at the rate of 75 mL an hour, discontinue the triple-lumen catheter, discontinue the Fenton catheter. Patient is currently on room air oxygen and using incentive spirometer. Discontinue the vancomycin Continue IV Zosyn Urology consultation appreciated Currently off pressors Monitor renal function Awaiting labs from today in regards to her electrolytes, renal function and white cell count Awaiting urine cultures and blood cultures Restart Metoprolol 25 mg twice a day, low dose and gradually bring her back to her outpatient dose. Anticoagulation can also be started in the evening. Transfer out of the ICU
[2022-04-12] MEDS ORDERED: METOPROLOL TARTRATE 25 MG TAB PO SCH (10:00)
[2022-04-12 11:37] LABS: Glucose,Whole Blood 149 mg/dL (75-99)
--- NOTE | 2022-04-12 15:03 | P.PN ---
Subjective Progress Note Date: 04/12/22 (delayed chartig seen at 1015) Principal diagnosis: fevers Patient is a 66-year-old woman with paroxysmal atrial fibrillation not on anticoagulation at baseline, HLD, HTN, DM who presented with generalized weakness, fevers, and left flank pain.Sealex had been diagnosed with urinary tract infection approximately 2 weeks ago and given cephalexin 250 mg 3 times a day, after 4 days of taking this medication, she discontinued it because it was making her feel nauseous. In the emergency dpeartment she underwent an extensive evaluation. Her T-max was 100.6, 97/47, 110 heart rate, 97% on room air. Labatoray analysis was consistent with hyponatremia to 131, carbon dioxide of 16, BUN/creatinine of 46/2.02, Initial lactic acid was 3.1. Liver function tests show elevated alkaline phosphatase to 171, total protein of 5.6, albumin 3.0. BNP was 323, troponin was less than 0.12. After receiving 4 L of fluid bolus her lactic acid improved to 1.2, Her BP remained low and she was started on levophed. She was admitted to the ICU for septic shock, nephrology and pul monary were consulted. She initially was given a dose of ceftriaxone and then was started on Zosyn. CT abdomen and pelvis showed anasarca, ureter lithiasis on the left without obstructive stones, and perinephric edema on the left kidney. Head CT showed no acute process but mild posterior parietal lobe hypodensity. She underwent a renal bladder ultrasound which shows left renal pelvic stone with bilateral perinephric fat stranding. Due to her acidosis required D5W with 3 A of bicarb which resulted in some hyperglycemia. She was able to be taken off of vasopressor agents by 04/11/22. Patient seen and examined at bedside. Did not sleep well last night and had an episode of elevated HR overnight. No chest pain, no shortness of breath, no nausea. General: non toxic, no distress, appears at stated age Derm: warm, dry Head: atraumatic, normocephalic, symmetric Eyes: EOMI, no lid lag, anicteric sclera Mouth: no lip lesion, mucus membranes moist Cardiovascular: S1S2 reg, no murmur, positive posterior tibial pulse bilateral, Lungs: CTA bilateral, no rhonchi, no rales , no accessory muscle use Abdominal: soft, nontender to palpation, no guarding, no appreciable organomegaly Ext: no gross muscle atrophy, no edema, no contractures Neuro: CN II-XI grossly intact, no focal neuro deficits Psych: Alert, oriented, appropriate affect Assessment/Plan: Septic shock secondary to left-sided pyelonephritis Acute renal failure secondary to ATN -UCx results obtained from PCPs office, patient failed cephalexin outpatient -Await final urine cultures -Pulmonary and nephrology recs appreciated -IVF -Conintue zosyn -Morphine when necessary for pain control -Zofran when necessary for nausea control - hold lisinopril and HCTZ Diabetes type 2 with hyperglycemia due to IVF - hold actos - follow BS - SSI Paroxysmal atrial fibrillation- BB restarted. Hypertension Hyperlipidemia - meds reviewed DVT prophylaxis: Lovenox Discussed with: Patient, nursing Anticipated discharge: home Anticipated discharge place: in 1-2 days A total of 35 minutes was spent on the care of this complex patient more than 50% of the time was spent in counseling and care coordination. Active Medications Generic Name Dose Route Start Last Admin Trade Name Freq PRN Reason Stop Dose Admin Enoxaparin Sodium 40 mg 04/12/22 09:00 04/12/22 08:09 Enoxaparin 40 Mg/0.4 Ml Syringe SQ 40 mg DAILY DANIELA Administration Piperacillin Sod/Tazobactam 100 mls @ 25 mls/hr 04/10/22 16:00 04/12/22 08:09 Sod 3.375 gm/ Sodium Chloride IVPB 25 mls/hr Q8HR DANIELA Administration Protocol Sodium Chloride 1,000 mls @ 75 mls/hr 04/11/22 10:00 04/11/22 22:20 Saline 0.9% IV 75 mls/hr .[id number] DANIELA Administration Insulin Aspart 0 unit 04/10/22 12:30 04/12/22 06:59 Insulin Aspart (Novolog) 100 Unit/Ml Vial SQ Not Given AC-TID DANIELA Protocol Lorazepam 0.5 mg 04/10/22 06:17 Lorazepam 2 Mg/Ml Inj IV Q6HR PRN Anxiety Metoprolol Tartrate 25 mg 04/12/22 21:00 Metoprolol Tartrate 25 Mg Tab PO BID DANIELA Miscellaneous Information 1 each 04/10/22 14:10 Phosphorus Replacement Protoco 1 Each Misc MISCELLANE DAILY PRN Per Protocol Protocol Miscellaneous Information 1 each 04/11/22 08:00 Magnesium Replacement Protocol 1 Each [facility] MISCELLANE DAILY PRN Per Protocol Protocol Miscellaneous Information 1 each 04/11/22 08:03 Potassium Replacement Protocol 1 Each [facility] MISCELLANE DAILY PRN Per Protocol Protocol Morphine Sulfate 4 mg 04/10/22 06:17 04/12/22 01:31 Morphine Sulfate 4 Mg/Ml Syringe IV 4 mg Q4HR PRN Administration Severe Pain Naloxone HCl 0.2 mg 04/10/22 06:17 Naloxone 0.4 Mg/Ml 1 Ml Vial IV Q2M PRN Opioid Reversal Ondansetron HCl 4 mg 04/10/22 06:17 Ondansetron 4 Mg/2 Ml Vial IVP Q8HR PRN Nausea And Vomiting Objective - Vital Signs Vital signs: Vital Signs Temp 98.4 F 04/12/22 08:00 Pulse 83 04/12/22 12:00 Resp 14 04/12/22 12:00 BP 123/82 04/12/22 12:00 Pulse Ox 93 L 04/12/22 11:00 FiO2 Intake & Output 04/11/22 04/12/22 04/12/22 18:59 06:59 18:59 Intake Total 8214.482 1068 75 Output Total 2875 1575 75 Balance -1274.438 -575 0 Weight 108.9 kg 72.6 kg Intake: IV 450 100 Dextrose 5% in Water 1, 250 000 ml @ 125 mls/hr IV . Q9H12M DANIELA with Sodium Bicarb (1 Meq/ml) 150 ml Rx#:[id number] Piperacillin-Tazobactam 3 200 100 .375 gm In Sodium Chloride 0.9% 100 ml @ 25 mls/hr IVPB Q8HR DANIELA Rx# :[id number] Intake, IV Titration 1150.562 900 75 Amount Magnesium Sulfate-D5w Pmx 200 1 gm In Dextrose/Water 1 100ml.bag @ 100 mls/hr IVPB Q1H DANIELA Rx#: [id number] Norepinephrine 32 mg In 0.562 Sodium Chloride 0.9% 218 ml @ 0.05 MCG/KG/MIN 1. 685 mls/hr IV .Q24H DANIELA Rx#:[id number] Potassium Chloride 20 meq 200 In Water For Injection 1 100ml.bag @ 50 mls/hr IVPB Q2H [facility] Rx#: [id number] Sodium Chloride 0.9% 1, 750 900 75 000 ml @ 75 mls/hr IV . [id number] [facility] Rx#:[id number] Output: Urine 2875 1575 75 Other: Voiding Method Indwelling Catheter Indwelling Catheter # Bowel Movements 1 - Labs CBC & Chem 7: 04/12/22 03:22 04/12/22 03:22 Labs: Abnormal Lab Results - Last 24 Hours (Table) 04/11/22 04/12/22 04/12/22 Range/Units 16:46 03:22 03:22 WBC 23.3 H (3.8-10.6) k/uL RBC 3.62 L (3.80-5.40) m/uL Hgb 10.7 L (11.4-16.0) gm/dL Hct 33.7 L (34.0-46.0) % Chloride 108 H (98-107) mmol/L Creatinine 1.09 H (0.52-1.04) mg/dL Glucose 128 H (74-99) mg/dL POC Glucose (mg/dL) 120 H (75-99) mg/dL Calcium 7.9 L (8.4-10.2) mg/dL 04/12/22 04/12/22 Range/Units 06:53 11:35 WBC (3.8-10.6) k/uL RBC (3.80-5.40) m/uL Hgb (11.4-16.0) gm/dL Hct (34.0-46.0) % Chloride (98-107) mmol/L Creatinine (0.52-1.04) mg/dL Glucose (74-99) mg/dL POC Glucose (mg/dL) 138 H 149 H (75-99) mg/dL Calcium (8.4-10.2) mg/dL Microbiology - Last 24 Hours (Table) 04/10/22 11:17 Blood Culture - Preliminary Blood No Growth after 48 hours 04/10/22 04:40 Urine Culture - Preliminary Urine,Catheterized
[2022-04-12 16:45] LABS: Glucose,Whole Blood 128 mg/dL (75-99)
[2022-04-12] MEDS: SODIUM CHLORIDE 0.9% 1,000 ML IV SCH (17:20)
[2022-04-12 19:49] LABS: Glucose,Whole Blood 110 mg/dL (75-99)
[2022-04-12] MEDS: METOPROLOL TARTRATE 25 MG TAB PO SCH (20:05)
[2022-04-12] MEDS ORDERED: traZODone HCL 50 MG TAB PO SCH (23:30)
[2022-04-13] MEDS ORDERED: VANCOMYCIN 1,250 MG in SODIUM CHLORIDE 0.9% 250 ML IVPB SCH (02:00)
[2022-04-13] MEDS: SODIUM CHLORIDE 0.9% 1,000 ML IV SCH (02:30)
[2022-04-13 04:17] VITALS: RESP 16; TEMP 98.6
[2022-04-13 06:46] LABS: Glucose,Whole Blood 138 mg/dL (75-99)
[2022-04-13] MEDS: INSULIN ASPART (NovoLOG) 100 UNIT/ML VIAL SQ SCH ×2 (06:53→12:47)
[2022-04-13 08:26] VITALS: BP 132/65; PULSE 85
--- NOTE | 2022-04-13 09:18 | P.PN ---
Subjective Progress Note Date: 04/13/22 The patient has left renal stones. SHe also had a pyelonephritis. From a urological standpoint she can go home. SHe will need a pcnl Left in the future. I made an appoinment to see me in 1 week Objective - Vital Signs Vital signs: Vital Signs Temp 98.6 F 04/13/22 04:00 Pulse 85 04/13/22 08:00 Resp 16 04/13/22 08:00 BP 132/65 04/13/22 08:00 Pulse Ox 99 04/13/22 08:00 FiO2 Intake & Output 04/12/22 04/13/22 04/13/22 18:59 06:59 18:59 Intake Total 1275 75 Output Total 575 Balance 700 75 Intake: IV 1200 75 Piperacillin-Tazobactam 3 200 .375 gm In Sodium Chloride 0.9% 100 ml @ 25 mls/hr IVPB Q8HR DANIELA Rx# :[id number] Sodium Chloride 0.9% 1, 1000 75 000 ml @ 75 mls/hr IV . [id number] DANIELA Rx#:[id number] Intake, IV Titration 75 Amount Sodium Chloride 0.9% 1, 75 000 ml @ 75 mls/hr IV . [id number] DANIELA Rx#:[id number] Output: Urine 575 Other: Voiding Method Toilet Toilet # Voids 3 1 # Bowel Movements 1 - Labs CBC & Chem 7: 04/12/22 03:22 04/12/22 03:22 Labs: Abnormal Lab Results - Last 24 Hours (Table) 04/12/22 04/12/22 04/12/22 Range/Units 03:22 11:35 16:33 POC Glucose (mg/dL) 149 H 128 H (75-99) mg/dL Procalcitonin 22.20 H (0.02-0.09) ng/mL 04/12/22 04/13/22 Range/Units 19:47 06:43 POC Glucose (mg/dL) 110 H 138 H (75-99) mg/dL Procalcitonin (0.02-0.09) ng/mL Microbiology - Last 24 Hours (Table) 04/10/22 04:40 Urine Culture - Preliminary Urine,Catheterized Gram Neg Bacilli 04/10/22 11:17 Blood Culture - Preliminary Blood No Growth after 48 hours
[2022-04-13] MEDS: METOPROLOL TARTRATE 25 MG TAB PO SCH (09:23)
[2022-04-13] MEDS: ENOXAPARIN 40 MG/0.4 ML SYRINGE SQ SCH (09:23)
[2022-04-13] MEDS: PIPERACILLIN-TAZOBACTAM 3.375 GM in SODIUM CHLORIDE 0.9% 100 ML IVPB SCH (09:23)
--- NOTE | 2022-04-13 10:36 | P.PN ---
Subjective Patient is seen in follow-up for acute kidney injury. Renal function improving. Nonoliguric. Oral intake fair. No vomiting or diarrhea. Possibly going on today. No active complaints. Vital signs are stable. General: Awake and alert. No acute distress. HEENT: Head exam is unremarkable. LUNGS: Breath sounds decreased. HEART: Rate and Rhythm are regular. ABDOMEN: Soft, no distention. EXTREMITITES: No edema. Objective - Vital Signs Vital signs: Vital Signs Temp 98.6 F 04/13/22 04:00 Pulse 85 04/13/22 08:00 Resp 16 04/13/22 08:00 BP 132/65 04/13/22 08:00 Pulse Ox 99 04/13/22 08:00 FiO2 Intake & Output 04/12/22 04/13/22 04/13/22 18:59 06:59 18:59 Intake Total 1275 75 Output Total 575 Balance 700 75 Intake: IV 1200 75 Piperacillin-Tazobactam 3 200 .375 gm In Sodium Chloride 0.9% 100 ml @ 25 mls/hr IVPB Q8HR DANIELA Rx# :[id number] Sodium Chloride 0.9% 1, 1000 75 000 ml @ 75 mls/hr IV . [id number] DANIELA Rx#:[id number] Intake, IV Titration 75 Amount Sodium Chloride 0.9% 1, 75 000 ml @ 75 mls/hr IV . [id number] DANIELA Rx#:[id number] Output: Urine 575 Other: Voiding Method Toilet Toilet # Voids 3 1 # Bowel Movements 1 - Labs CBC & Chem 7: 04/12/22 03:22 04/12/22 03:22 Labs: Abnormal Lab Results - Last 24 Hours (Table) 04/12/22 04/12/22 04/12/22 Range/Units 03:22 11:35 16:33 POC Glucose (mg/dL) 149 H 128 H (75-99) mg/dL Procalcitonin 22.20 H (0.02-0.09) ng/mL 04/12/22 04/13/22 Range/Units 19:47 06:43 POC Glucose (mg/dL) 110 H 138 H (75-99) mg/dL Procalcitonin (0.02-0.09) ng/mL Microbiology - Last 24 Hours (Table) 04/10/22 04:40 Urine Culture - Preliminary Urine,Catheterized Gram Neg Bacilli 04/10/22 11:17 Blood Culture - Preliminary Blood No Growth after 48 hours Assessment and Plan Plan: Assessment: 1. Acute kidney injury secondary to ATN secondary to septic shock. Creatinine 2.02 on admission - 1.09 yesterday. Unknown baseline renal function. Mild renal collecting system fullness noted on CAT scan. No hydronephrosis noted on kidney ultrasound. 2. Metabolic acidosis secondary to acute kidney injury and lactic acidosis. Improved with bicarbonate drip. 3. Septic shock s/p Levophed. Possibly urinary source versus left foot infection. Urine culture positive for gram-negative bacilli. 4. Hypovolemic hyponatremia. Resolved. 5. Diabetes mellitus. 6. Hypomagnesemia from poor intake and diuretic. Replaced. Improved. 7. Hypophosphatemia from poor intake. Replaced. Improved. 8. Hypokalemia from poor intake. Replaced. Better. Plan: Decreased rate of normal saline to 50 mL an hour. Hold antihypertensives and diuretics. Follow-up cultures. Continue to monitor renal function and urine output. Follow up outpatient in 1-2 weeks.
[2022-04-13 10:51] LABS: HGB 11.1 gm/dL (11.4-16.0); MCH 30.5 pg (25.0-35.0); MCHC 32.5 g/dL (31.0-37.0); MCV 93.6 fL (80.0-100.0); Mean Platelet Volume 8.5; Platelet Count 363 k/uL (150-450); RBC 3.63 m/uL (3.80-5.40); RDW 14.3 % (11.5-15.5); WBC 12.9 k/uL (3.8-10.6)
[2022-04-13 11:18] LABS: Calcium 8.2 mg/dL (8.4-10.2); Potassium 4.6 mmol/L (3.5-5.1)
[2022-04-13 11:53] LABS: Glucose,Whole Blood 156 mg/dL (75-99)
--- NOTE | 2022-04-13 12:09 | P.PN ---
Subjective Progress Note Date: 04/13/22 This is a 66-year-old female patient, who lives in [facility] and her primary care physician is out of [place]. Over the past 2-3 weeks, the patient was having lethargy, weakness, chills, tiredness, fatigue and she was further investigated to her physician and she was told to have an E. coli UTI for which the patient was given a course of antibiotics patient with antibiotics for a total of 4 days patient up quitting the medication. She wasn't getting more nauseous. She ended up getting worse and her condition was decompensating as the patient was getting progressively more weak and tired. She came into the emergency department with the patient was found to be septic, she had an acute kidney injury with a creatinine of 2.0 and some mild lactic acidosis. UA was abnormal and the UTI was suspected. CAT scan of the abdomen and pelvis was done and it showed kidney stones and some swelling and edema of the left kidney and the patient had couple of stones in the left renal collecting system. The patient was started on IV Zosyn. The patient was given a total of 5 L of IV fluid normal saline and the blood pressure was soft and following that the patient was started on pressors and currently she is on norepinephrine infusion through a right IJ triple-lumen catheter running at 0.05 mcg/kg per minute. Urine output is adequate for now. Note that 2 weeks ago, the patient also had a bout of hematuria probably related to her kidney stones. She is diabetic. She has hypertension and hyperlipidemia as comorbid conditions. The baseline creatinine is not known. It'll come on evaluation in the ED, the patient was already feeling better. She had no respiratory distress. No cough sputum production chest tightness or wheezing. No other issues for now. No focal neurological deficits. No headaches. No neck stiffness. Mental status is improved. The lactic acid level is also improving. Creatinine is slightly lower. BNP level is 323. LFTs were essentially within normal limits. 2021, the patient is being seen for a follow-up. The patient is currently in the intensive care unit. She is awake and alert and she is sitting up on a chair and she has no specific complaints. The patient was seen by urology yesterday for a left adrenal kidney stone and the stone was felt a nonobstructive and there was no need for immediate intervention. Nevertheless, his impression was that the patient may require a percutaneous nephrostolithotomy once the infection sepsis has improved. In any rate, the patient is currently on room air oxygen. IV fluids are running at the rate of normal saline at the rate of 75 mL an hour. We'll put the patient on on a bicarb infusion yesterday and his serum bicarbonate is currently up to 27 and the bicarb infusion will be discontinued. The patient is also demonstrating from of the renal function. Creatinine is down to 1.2 and the patient is being seen by nephrology. The sodium level is currently at 140 with a potassium level of 3.5. BUN is at 21 with a creatinine of 1.2. The white cell count is currently at 28.3 with a hemoglobin of 10.5. Cultures have been still pending for now. Meanwhile, the patient remains on IV Zosyn . He was dynamically stable and she is currently off pressors and this was a continued discontinued around 7:00 this morning. She is awake and alert. No confusion. No altered mentation. 2021, the patient is doing extremely well. She is currently off pressors. Renal function is improved and we are still awaiting labs from today. The patient remains on IV Zosyn and vancomycin.. She was taken off the bicarb infusion and the patient is currently on normal saline at the rate of 75 mL an hour. vancomycin was ordered today by the hospitalist. The exact reason is not clear. The patient was slightly tachycardic this morning and the patient this was worked up further lactic acid level was checked and it veneer jointer returner to be at 1.4 and vancomycin was added to her regimen. The patient was having some nausea also and was having some headache and this essentially recovered. Overall fluid balance is been -1.8 L since yesterday. The patient is doing well. She is afebrile. She hasn't spiked any temperatures. Cultures as still negative for now. She is on room air oxygen. No nausea. No vomiting. No emesis. No abdominal pain. No flank pain. No hematuria. No other significant events overnight. Awaiting follow-up labs from today. The white cell count was already down trending from yesterday. Extent 2021, the patient is doing well and she is outside the intensive care unit. The white cell count is down to 12.9 and the urine culture came back positive for E. coli which is the same bacteria that she had on an outpatient basis. She remains on IV Zosyn for now. Pro-calcitonin level was as high as 22 at the time of admission. The patient is doing well. No nausea or vomiting. No altered mentation. She is back to her normal self. Family is at the bedside . Pulse ox is 99% room air oxygen. Objective - Vital Signs Vital signs: Vital Signs Temp 98.6 F 04/13/22 04:00 Pulse 85 04/13/22 08:00 Resp 16 04/13/22 08:00 BP 132/65 04/13/22 08:00 Pulse Ox 99 04/13/22 08:00 FiO2 Intake & Output 04/12/22 04/13/22 04/13/22 18:59 06:59 18:59 Intake Total 1275 75 Output Total 575 Balance 700 75 Intake: IV 1200 75 Piperacillin-Tazobactam 3 200 .375 gm In Sodium Chloride 0.9% 100 ml @ 25 mls/hr IVPB Q8HR DANIELA Rx# :[id number] Sodium Chloride 0.9% 1, 1000 75 000 ml @ 75 mls/hr IV . [id number] DANIELA Rx#:[id number] Intake, IV Titration 75 Amount Sodium Chloride 0.9% 1, 75 000 ml @ 75 mls/hr IV . [id number] DANIELA Rx#:[id number] Output: Urine 575 Other: Voiding Method Toilet Toilet Toilet # Voids 3 1 # Bowel Movements 1 - Exam Gen: in no apparent distress, resting comfortably in bed Eyes: PERRL, no scleral injection or icterus HENT: normocephalic, atraumatic, good hearing acuity, moist mucous membranes. The patient has a right IJ triple-lumen catheter in place Neck: no tracheal deviation, full range of motion Lungs were clear to auscultation and percussion, and with normal diaphragmatic excursion. No wheezes or rales were noted. Cardiac exam revealed the PMI to be normally situated and sized. The rhythm was regular and no extrasystoles were noted during several minutes of auscultation. The first and second heart sounds were normal and physiologic splitting of the second heart sound was noted. There were no murmurs, rubs, clicks, or gallops. Abdominal exam revealed normal bowel sounds. The abdomen was soft, non-tender, and without masses, organomegaly, or appreciable enlargement of the abdominal aorta. : no suprapubic tenderness, left-sided CVAT, fenton catheter is present MSK: no clubbing, no cyanosis, no noted contractures of extremities Skin: no noted rashes, petechiae; temperature of skin is appropriate Neuro: moving all extremities without signs of weakness, CN II-XII intact Psych: cooperative, euthymic mood, insight and judgment intact - Labs CBC & Chem 7: 04/13/22 10:34 04/13/22 10:34 Labs: Abnormal Lab Results - Last 24 Hours (Table) 04/12/22 04/12/22 04/12/22 Range/Units 03:22 16:33 19:47 WBC (3.8-10.6) k/uL RBC (3.80-5.40) m/uL Hgb (11.4-16.0) gm/dL Chloride (98-107) mmol/L Carbon Dioxide (22-30) mmol/L Glucose (74-99) mg/dL POC Glucose (mg/dL) 128 H 110 H (75-99) mg/dL Calcium (8.4-10.2) mg/dL Procalcitonin 22.20 H (0.02-0.09) ng/mL 04/13/22 04/13/22 04/13/22 Range/Units 06:43 10:34 10:34 WBC 12.9 H (3.8-10.6) k/uL RBC 3.63 L (3.80-5.40) m/uL Hgb 11.1 L (11.4-16.0) gm/dL Chloride 113 H (98-107) mmol/L Carbon Dioxide 21 L (22-30) mmol/L Glucose 147 H (74-99) mg/dL POC Glucose (mg/dL) 138 H (75-99) mg/dL Calcium 8.2 L (8.4-10.2) mg/dL Procalcitonin (0.02-0.09) ng/mL 04/13/22 Range/Units 11:51 WBC (3.8-10.6) k/uL RBC (3.80-5.40) m/uL Hgb (11.4-16.0) gm/dL Chloride (98-107) mmol/L Carbon Dioxide (22-30) mmol/L Glucose (74-99) mg/dL POC Glucose (mg/dL) 156 H (75-99) mg/dL Calcium (8.4-10.2) mg/dL Procalcitonin (0.02-0.09) ng/mL Microbiology - Last 24 Hours (Table) 04/10/22 04:40 Urine Culture - Final Urine,Catheterized Escherichia coli 04/10/22 11:17 Blood Culture - Preliminary Blood No Growth after 48 hours Assessment and Plan Plan: Acute complicated left-sided pyelonephritis. The patient has obstructive uropathy with nephrolithiasis within the left urinary system/collecting ducts with some hydronephrosis. Patient was seen by urology. The patient is being planned for outpatient intervention regarding kidney stones. No this of any acute obstruction. The patient is being treated with a combination of fluids and antibiotics and pressors and currently she is off pressors. Edges are all negative and the patient remains on IV Zosyn. Awaiting a follow-up white cell count from today. The lactic acid level was down to 1.4. Patient is producing adequate amount of urine output. The follow-up blood cultures are negative and the urine culture came back positive for E. coli and the patient has done extremely well on IV Zosyn for now. White cell count is improved. The patient is currently on no pressors Septic shock secondary to above, recovered Recent UTI related to E. coli Hematuria, likely secondary to nephrolithiasis Acute kidney injury secondary to above , improving Non-anion gap metabolic acidosis secondary to above, recovered Hypotension secondary to above, improving History of atrial fibrillation/V. tach post-ablation mentioned on long-term and to coagulation with Eliquis Hypertension Hyperlipidemia Diabetes mellitus Plan Patient can be switched to oral antibiotics. The choice will be ciprofloxacin. She has done extremely well. She is back to her baseline. Increased mobility. Increased level of activity. Pulmonary critical care services will sign off.
[2022-04-13] MEDS ORDERED: LACTOBACILLUS ACIDOPH & BULGAR 1 EACH PACKET PO SCH (12:45)
--- NOTE | 2022-04-13 16:37 | P.DS ---
Providers Date of admission: 04/10/22 06:17 Attending physician: Agustin Nicholson MD Consults: 04/10/22 06:51 Consult Physician Routine Consulting Provider: Hussein Reyes Consult Reason/Comments: icu Do you want consulting provider notified?: Yes Consult Physician Routine Consulting Provider: Florina Tavarez Consult Reason/Comments: noemy Do you want consulting provider notified?: Yes 04/10/22 12:37 Consult Physician Routine Consulting Provider: Mark Baires Consult Reason/Comments: urinary tract infection, septic shock, NOEMY, kidney stones Do you want consulting provider notified?: Yes Primary care physician: Physician Nonstaff Hospital Course: Discharge Diagnosis: Septic shock secondary to E. Coli left-sided pyelonephritis Acute renal failure secondary to ATN Diabetes type 2 with hyperglycemia due to IVF Paroxysmal atrial fibrillation- BB restarted. Hypertension Hyperlipidemia Hospital Course: Patient is a 66-year-old woman with paroxysmal atrial fibrillation not on anticoagulation at baseline, HLD, HTN, DM who presented with generalized weakness, fevers, and left flank pain.Rosario had been diagnosed with urinary tract infection approximately 2 weeks ago and given cephalexin 250 mg 3 times a day, after 4 days of taking this medication, she discontinued it because it was making her feel nauseous. In the emergency dpeartment she underwent an extensive evaluation. Her T-max was 100.6, 97/47, 110 heart rate, 97% on room air. Labatoray analysis was consistent with hyponatremia to 131, carbon dioxide of 16, BUN/creatinine of 46/2.02, Initial lactic acid was 3.1. Liver function tests show elevated alkaline phosphatase to 171, total protein of 5.6, albumin 3.0. BNP was 323, troponin was less than 0.12. After receiving 4 L of fluid bolus her lactic acid improved to 1.2, Her BP remained low and she was started on levophed. She was admitted to the ICU for septic shock, nephrology and pulmonary were consulted. She initially was given a dose of ceftriaxone and then was started on Zosyn. CT abdomen and pelvis showed anasarca, ureter lithiasis on the left without obstructive stones, and perinephric edema on the left kidney. Head CT showed no acute process but mild posterior parietal lobe hypodensity. She underwent a renal bladder ultrasound which shows left renal pelvic stone with bilateral perinephric fat stranding. Due to her acidosis required D5W with 3 A of bicarb which resulted in some hyperglycemia. She was able to be taken off of vasopressor agents by 04/11/22. She continued to do well. Her urine came back with E. coli. She was determined stable for discharge. Follow-up: Primary care physician in one to 2 days, Dr. Howard next week, metoprolol dose decreased on hydrochlorothiazide discontinued secondary to low blood pressures. Started on probiotics secondary to loose stools. Patient seen and examined at bedside. Doing well. Had a few formed bowel movements today. No nausea or vomiting. No abdominal pain. No recurrent fevers. Wants to go home. Vital signs reviewed and stable. General: non toxic, no distress, appears at stated age Derm: warm, dry Head: atraumatic, normocephalic, symmetric Eyes: EOMI, no lid lag, anicteric sclera Mouth: no lip lesion, mucus membranes moist Cardiovascular: S1S2 reg, no murmur, positive posterior tibial pulse bilateral, Lungs: CTA bilateral, no rhonchi, no rales, no accessory muscle use Abdominal: soft, nontender to palpation, no guarding, no appreciable organomegaly Ext: no gross muscle atrophy, no edema, no contractures Neuro: CN II-XI grossly intact, no focal neuro deficits Psych: Alert, oriented, appropriate affect A total of 37 minutes of time were spent preparing this complex discharge summary. Patient was discharged on 04/13/22. Patient Condition at Discharge: Stable Plan - Discharge Summary Discharge Rx Participant: Yes New Discharge Prescriptions: New Metoprolol Tartrate [Lopressor] 25 mg PO BID #60 tab Ciprofloxacin HCl [Cipro] 500 mg PO BID 7 Days #14 tab Continue Pioglitazone [Actos] 45 mg PO DAILY traZODone HCL [Desyrel] 50 mg PO HS Simvastatin 40 mg PO DAILY Discontinued Terbinafine [LamISIL] 250 mg PO DAILY Lisinopril-Hctz 20-12.5 mg [Zestoretic 20-12.5] 1 tab PO DAILY Metoprolol Succinate (ER) [Toprol Xl] 100 mg PO DAILY Discharge Medication List Pioglitazone [Actos] 45 mg PO DAILY 04/10/22 [History] Simvastatin 40 mg PO DAILY 04/10/22 [History] traZODone HCL [Desyrel] 50 mg PO HS 04/10/22 [History] Ciprofloxacin HCl [Cipro] 500 mg PO BID 7 Days #14 tab 04/13/22 [Rx] Metoprolol Tartrate [Lopressor] 25 mg PO BID #60 tab 04/13/22 [Rx] Follow up Appointment(s)/Referral(s): Rodrigue Garcia MD [REFERRING] - As Needed (Internal meidcine in [place]) Nonstaff,Physician [Primary Care Provider] - 1-2 days Chet Streeter MD [STAFF PHYSICIAN] - 1 Week Activity/Diet/Wound Care/Special Instructions: Activity: as tolerated Diet: heart healthy Special Instructions: Take all medications as prescribed. Follow-up with your PCP next week, may benefit from repeat labs next week. Follow blood pressure at home as you are off your lisinopril-hctz and metoprolol has been lowered. On discharge your blood pressure is well controlled. Take a probiotic twice a day while your on antibiotics and then for one additional week after you complete them Thank you for trusting us with your care, we wish you well on your journey to better health. Discharge Disposition: HOME SELF-CARE
== END 2022-04-13 13:09 | disposition home or self-care (01) | DRG 871 ==
LOC: EC 00:56 → 3SCARD 06:17 → 2SICU 06:57 → 3SCARD 04-13 04:00
PROVIDERS: ADMIT Internal Medicine; ATTEND Internal Medicine
PROC: 02H633Z Insertion of Infusion Device into Right Atrium, Percutaneous Approach (ICD-10-PCS; principal; 2022-04-10)
PROC: 3E043XZ Introduction of Vasopressor into Central Vein, Percutaneous Approach (ICD-10-PCS; principal; 2022-04-10)
DX: A41.51 Sepsis due to Escherichia coli [E. coli] (principal); R65.21 Severe sepsis with septic shock; N17.0 Acute kidney failure with tubular necrosis; E87.1 Hypo-osmolality and hyponatremia; E87.2 Acidosis; N13.6 Pyonephrosis; E83.39 Other disorders of phosphorus metabolism; E86.0 Dehydration; I48.0 Paroxysmal atrial fibrillation; E11.65 Type 2 diabetes mellitus with hyperglycemia; Z20.822 Contact with and (suspected) exposure to COVID-19; E78.5 Hyperlipidemia, unspecified; E83.42 Hypomagnesemia; E86.1 Hypovolemia; E87.6 Hypokalemia; R31.9 Hematuria, unspecified; I10 Essential (primary) hypertension; F41.9 Anxiety disorder, unspecified; M54.9 Dorsalgia, unspecified; Z87.440 Personal history of urinary (tract) infections; Z79.84 Long term (current) use of oral hypoglycemic drugs; Z79.899 Other long term (current) drug therapy; Z98.890 Other specified postprocedural states
CPT/HCPCS: 36415; 36556; 70450; 71045; 74176; 76770; 80048; 80053; 81001; 83605; 83735; 83880; 84100; 84145; 84484; 85025; 85027; 85379; 85610; 85730; 87040; 87077; 87086; 87186; 87636; 93005; 96361; 96365; 96366; 96367; 96368; 96372; 96375; 99291

== ENCOUNTER → 2022-05-10 | Outpatient (CLI) | payer MEDICARE ==
[2022-05-10 15:36] LABS: Appearance,Urine Clear (Clear); Bilirubin,Urine Negative (Negative); Blood,Urine Negative (Negative); Color,Urine Yellow (Yellow); Ketones,Urine Negative (Negative); Nitrite,Urine Negative (Negative); PH, Urine 5.5 (5.0-8.0); Specific Gravity,Urine 1.008 (1.001-1.030); Urobilinogen,Urine 0.2 (0.2,1.0)
[2022-05-10 16:12] LABS: Basophils # (A) 0.09 X 10*3/uL (0.00-0.10); Basophils % (A) 1.1 %; Eosinophils # (A) 0.26 X 10*3/uL (0.04-0.35); Eosinophils % (A) 3.1 %; HCT 38.1 % (37.2-46.3); Immature Grans, Automated 0.8 %; Lymphocytes # (A) 2.16 X 10*3/uL (0.90-5.00); Lymphocytes % (A) 25.4 %; MCHC 31.5 g/dL (32.0-37.0); Mean Platelet Volume 11.2 fL (9.5-12.2); Monocytes # (A) 0.62 X 10*3/uL (0.20-1.00); Monocytes % (A) 7.3 %; NRBC Per 100 WBC 0 /100 WBCS (0.0-0.0); Neutrophils % (A) 62.3 %; Platelet Count 397 X 10*3/uL (140-440); RBC 4.14 X 10*6/uL (4.10-5.20); RDW 16.5 % (11.5-14.5)
[2022-05-10 16:20] LABS: Bacteria,Urine None Seen /HPF (None Seen); Calcium Oxalate Crystals,Urine Present /LPF (None Seen)
[2022-05-10 16:47] LABS: African American GFR (CKD) 67.5 (60.0-200.0); Albumin 4.5 g/dL (3.8-4.9); Albumin/Globulin Ratio 1.55 (1.60-3.17); Anion Gap 13.7 mmol/L (10.00-18.00); BUN/Creat Ratio 12.6 Ratio (12.00-20.00); Blood Urea Nitrogen 12.6 mg/dL (9.0-27.0); Calcium 10.3 mg/dL (8.7-10.3); Carbon Dioxide 24.3 mmol/L (20.0-27.5); Globulin 2.9 g/dL (1.6-3.3); Non-African American GFR(CKD) 58.2 (60.0-200.0); Potassium 4.8 mmol/L (3.5-5.5); Total Bilirubin 0.4 mg/dL (0.30-1.20); Total Protein 7.4 g/dL (6.2-8.2)
== END | disposition home or self-care (01) ==
LOC: LABPAT 10:14
PROVIDERS: ATTEND Urology
DX: Z01.812 Encounter for preprocedural laboratory examination (principal); N20.0 Calculus of kidney; R31.29 Other microscopic hematuria
CPT/HCPCS: 36415; 80053; 81001; 85025; 87086

== ENCOUNTER 2022-05-16 06:52 | Day surgery (SDC) | payer MEDICARE ==
[2022-05-11 08:20] VITALS: BMI 29.2
--- NOTE | 2022-05-15 07:08 | P.GSHP ---
History of Present Illness H&P Date: 05/15/22 66 yo female in the hospital in April with a pyelonephritis left. Was found to have a 16 mm non obstructing stone in the left renal pelvis. We discussed treatment options. Because of the fact that the stone is probably infected we elected to remove it. DUe to the size we will do a left pcnl. the risks complicatons and alternatives have been discussed. - Constitutional Constitutional: Denies chills, Denies fever - EENT Eyes: denies blurred vision, denies pain Ears, nose, mouth and throat: Denies headache, Denies sore throat - Cardiovascular Cardiovascular: Denies chest pain, Denies shortness of breath - Respiratory Respiratory: Denies cough, Denies 7 - Gastrointestinal Gastrointestinal: Denies abdominal pain, Denies diarrhea, Denies nausea, Denies vomiting - Genitourinary (Female) Genitourinary: Denies dysuria, Denies hematuria - Genitourinary (Male) Genitourinary: Denies dysuria, Denies hematuria - Musculoskeletal Musculoskeletal: Denies myalgias - Integumentary Integumentary: Denies pruritus, Denies rash - Neurological Neurological: Denies numbness, Denies weakness - Psychiatric Psychiatric: Denies anxiety, Denies depression - Endocrine Endocrine: Denies fatigue, Denies weight change Past Medical History Past Medical History: Atrial Fibrillation, Diabetes Mellitus, Hyperlipidemia, Hypertension, Supraventricular Tachycardia (SVT) Additional Past Medical History / Comment(s): Tachycardia, kidney stones, recent UTI/Sepsis/admit to [facility] for tx History of Any Multi-Drug Resistant Organisms: None Reported Past Surgical History: Cardiac Ablation, Orthopedic Surgery Additional Past Surgical History / Comment(s): rt foot for torn tendon, surgery for acid reflux, surgery for kidney stone/stent, cardiac ablation 08/2021 Past Anesthesia/Blood Transfusion Reactions: Previous Problems w/ Anesthesia Additional Past Anesthesia/Blood Transfusion Reaction / Comment(s): woke up twice during foot surgery Smoking Status: Never smoker - Past Family History Mother Family Medical History: No Reported History Medications and Allergies Home Medications Medication Instructions Recorded Confirmed Type Pioglitazone [Actos] 45 mg PO DAILY 04/10/22 05/11/22 History Simvastatin 40 mg PO HS 04/10/22 05/11/22 History traZODone HCL [Desyrel] 50 mg PO HS PRN 04/10/22 05/11/22 History Metoprolol Tartrate [Lopressor] 25 mg PO BID #60 tab 04/13/22 05/11/22 Rx Glimepiride [Amaryl] 4 mg PO DAILY 05/11/22 05/11/22 History Metformin Er 750 mg PO BID 05/11/22 05/11/22 History Rivaroxaban [Xarelto] 20 mg PO HS 05/11/22 05/11/22 History amLODIPine [Norvasc] 5 mg PO DAILY 05/11/22 05/11/22 History Allergies Allergy/AdvReac Type Severity Reaction Status Date / Time No Known Allergies Allergy Verified 05/11/22 08:06 Surgical - Exam - General well developed, well nourished, no distress - Eyes normal ocular movement, no icteric - ENT no hearing loss, no congestion - Neck no masses, trachea midline - Respiratory normal respiratory effort, clear to auscultation - Abdomen Abdomen: soft, non tender, no guarding, no rigid, no rebound - Integumentary no rash, no abnormal pigmentation - Neurologic no disoriented, no combative - Psychiatric oriented to time, oriented to person, oriented to place, speech is normal, memory intact Results - Imaging CT scan - abdomen: report reviewed, image reviewed CT scan - pelvis: report reviewed, image reviewed Assessment and Plan Assessment: Impression: left renal stone Plan: pcnl left
[~2022-05-16 06:52] MED LIST: AMPICILLIN 1,000 MG in SODIUM CHLORIDE 0.9% 50 ML IVPB PRN; DEXAMETHASONE SOD PHOSPHATE 4 MG/ML 1 ML VIAL IV ONE; GENTAMICIN IN NACL ISO-OSM PMX 80 MG in SALINE 1 100ML.BAG IVPB PRN; HYDROmorphone 0.5 MG/0.5 ML SYRINGE IVP PRN; LACTATED RINGERS 1,000 ML IV SCH; ONDANSETRON 4 MG/2 ML VIAL IVP ONE
--- NOTE | 2022-05-16 07:24 | XR ---
EXAMINATION TYPE: XR KUB DATE OF EXAM: 05/16/2022 7:05 AM CLINICAL HISTORY: Kidney stones. TECHNIQUE: Two supine KUB images of the abdomen are obtained. COMPARISON: CT abdomen and pelvis April 10, 2022. FINDINGS: There are 2 adjacent central left renal calculi measuring up to 11 mm in the pelvis that mix perior L3 level redemonstrated. No right-sided nephrolithiasis. Some paucity of bowel gas. Visualized gas seen in nondistended stomach and scattered bowel loops. Occ asional scattered tiny pelvic phleboliths. Lung bases are clear. Osseous structures are intact. IMPRESSION: As above.
[2022-05-16 08:07] LABS: Glucose,Whole Blood 146 mg/dL (70-110)
[2022-05-16] MEDS ORDERED: KETOROLAC 15 MG/ML 1 ML VIAL ONE (08:24)
[2022-05-16] MEDS ORDERED: PROPOFOL 10 MG/ML 20 ML VIAL IV ONE (08:24)
[2022-05-16] MEDS ORDERED: LIDOCAINE 2% INJ 20 MG/ML (2 ML VIAL) ONE (08:24)
[2022-05-16] MEDS ORDERED: fentaNYL (PF) 50 MCG/ML 2 ML AMP ONE (08:24)
[2022-05-16] MEDS ORDERED: MIDAZOLAM 2 MG/2 ML VIAL ONE (08:24)
[2022-05-16] MEDS ORDERED: PHENYLEPHRINE-0.9% NACL SYG 1,000 MCG/10 ML SYRINGE ONE (08:24)
--- NOTE | 2022-05-16 10:00 | P.OP ---
Date of Procedure: 05/16/22 Preoperative Diagnosis: Left ureteral stone Postoperative Diagnosis: Same Procedure(s) Performed: Cystoscopy, left ureteroscopy with laser lithotripsy, 6 x 24 stent Anesthesia: AAKASH Surgeon: Chet Streeter Estimated Blood Loss (ml): 0 Pathology: other (Stone) Condition: stable Disposition: PACU Indications for Procedure: The patient is 66. She was seen in the office with a 15 mm left UPJ stone. We discussed treatment options and because of the potential infection we set her up for left percutaneous nephrostolithotomy. KUBs this morning shows a stone is moved down into the proximal to mid ureter on the left side. I discussed with the patient about doing a left ureteroscopy with laser lithotripsy instead of a left percutaneous nephrostolithotomy. We will do that. Description of Procedure: The patient is brought to the operating suite. She is given general anesthesia. She's placed in lithotomy position with a sterile prep and drape. The stone was seen in the proximal to mid ureter on the left side on fluoroscopy. Cystoscopy a Foroblique lens and 21-Grenadian sheath identifies a normal urethra, bladder wall and ureteral orifice ease. The left ureteral orifice is intubated with an 035 wire and I passed the wire up to the stone but it reginald. I thus removed the wire pass a semirigid scope up the left ureteral orifice to the stone.. The stone popped back up into the renal pelvis. I then pass an 035 wire through the ureteroscope. I removed the ureteroscope and passed [id number] reentry sheath. The inner sheath is removed. I passed the flexible ureteroscope through the sheath up into the left UPJ. The stone was identified and with the 200 laser probe the stone was broken into tiny fragments. With a 1.90 tip stone basket these large fragments are removed. At the end of the procedure there no remaining significant fragments up. An 035 wires and passed up through the left ureteral sheath into the renal pelvis. I removed the sheath gently. I then pass a 6 x 24 double-J catheter that coils in the left renal pelvis and the bladder the bladder strain the patient is awakened and returned recovery room in good condition. The stone fragments will be sent to pathology. The patient will be discharged upon recovery and follow-up in the office in one week for cystoscopy and stent removal.
--- NOTE | 2022-05-16 10:12 | FL ---
EXAMINATION TYPE: FL Perc Nephrostomy New Access DATE OF EXAM: 05/16/2022 COMPARISON: NONE HISTORY: LEFT RENAL STONE TECHNIQUE: Fluoroscopy. FINDINGS: Fluoroscopic guidance was provided of 20 seconds. IMPRESSION: As Above.
[2022-05-16 10:48] VITALS: RESP 18
[2022-05-16 11:01] VITALS: BP 132/79; PULSE 84
[2022-05-16 11:10] VITALS: TEMP 97.6
== END 2022-05-16 11:20 | disposition home or self-care (01) ==
LOC: OR 06:52
PROVIDERS: ATTEND Urology
DX: N20.1 Calculus of ureter (principal); I48.91 Unspecified atrial fibrillation; E11.69 Type 2 diabetes mellitus with other specified complication; E78.5 Hyperlipidemia, unspecified; I10 Essential (primary) hypertension; Z87.442 Personal history of urinary calculi; Z87.440 Personal history of urinary (tract) infections; Z86.19 Personal history of other infectious and parasitic diseases; Z79.84 Long term (current) use of oral hypoglycemic drugs; Z79.899 Other long term (current) drug therapy; Z79.01 Long term (current) use of anticoagulants
CPT/HCPCS: 82365; 50432; 74018; 52356; C2625; C1769; J1580; J2250; J1100; J2405; J3010; J0290; J1885; J2370; J2704; J2001; 86850; 86900; 86901

== ENCOUNTER → 2022-07-03 | Outpatient (CLI) | payer MEDICARE ==
--- NOTE | 2022-07-03 09:34 | XR ---
EXAMINATION TYPE: XR KUB DATE OF EXAM: 07/03/2022 COMPARISON: 05/16/2022 HISTORY: Pain TECHNIQUE: One view abdominal series FINDINGS: The osseous structures are intact. The bowel gas pattern is nonspecific. There are 2 punctate calcif ications measuring 1 to 2 mm overlying the lower pole of the left kidney. Calcifications seen in the prior exam and the pelvis are stable and therefore likely vascular. Arthropathy of the hips. Hypertro phic and degenerative changes spine. No definite suspicious calcifications overlying the right kidney . IMPRESSION: 1. Two tiny punctate lower pole left renal calculi measuring 1 to 2 mm. 2. Stable pelvic calcifications likely vascular given the stability.
== END | disposition home or self-care (01) ==
LOC: RADXRMAIN 08:35
PROVIDERS: ATTEND Urology
DX: N20.0 Calculus of kidney (principal)
CPT/HCPCS: 74018

== ENCOUNTER → 2022-07-19 | Outpatient (CLI) | payer MEDICARE ==
--- NOTE | 2022-07-20 19:01 | MM ---
Reason for Exam: Screening (asymptomatic). Last mammogram was performed 1 year(s) and 9 month(s) ago. Patient History: Menarche at age 13. First Full-Term at age 22. Postmenopausal. Risk Values: Diana 5 year model risk: 1.4%. NCI Lifetime model risk: 4.8%. Prior Study Comparison: 07/11/2017 Bilateral MG 3D screening mammo w/cad, [facility]. 10/06/2020 Bilateral MG 3D screening mammo w/cad, [facility]. Tissue Density: The breast tissue is heterogeneously dense. This may lower the sensitivity of mammography. Findings: Analyzed By CAD. There is no suspicious group of microcalcifications or new suspicious mass in either breast. Overall Assessment: Negative, BI-RAD 1 Management: Screening Mammogram of both breasts in 1 year. A clinical breast exam by your physician is recommended on an annual basis and results should be correlated with mammographic findings. Electronically signed and approved by: Hussein Russell DO
== END | disposition home or self-care (01) ==
LOC: RADMAMWWP 07:42
DX: Z12.31 Encounter for screening mammogram for malignant neoplasm of breast (principal); Z78.0 Asymptomatic menopausal state
CPT/HCPCS: 77063; 77067

== ENCOUNTER → 2023-09-03 | Outpatient (CLI) | payer MEDICARE ==
--- NOTE | 2023-09-04 08:46 | MM ---
Reason for Exam: Screening (asymptomatic). Last mammogram was performed 1 year(s) and 1 month(s) ago. Patient History: Menarche at age 13. First Full-Term at age 22. Postmenopausal. Risk Values: Diana 5 year model risk: 1.4%. NCI Lifetime model risk: 4.6%. Prior Study Comparison: 07/11/2017 Bilateral MG 3D screening mammo w/cad, [facility]. 10/06/2020 Bilateral MG 3D screening mammo w/cad, [facility]. 07/19/2022 Bilateral MG 3D screening mammo w/cad, [facility]. Tissue Density: There are scattered fibroglandular densities. Findings: Analyzed By CAD. There is no suspicious group of microcalcifications or new suspicious mass in either breast. Chronic nodularity within the right breast. Benign calcifications within both breasts. Loop recorder within the left chest. Overall Assessment: Benign, BI-RAD 2 Management: Screening Mammogram of both breasts in 1 year. A clinical breast exam by your physician is recommended on an annual basis and results should be correlated with mammographic findings. Note on Diana scores and lifetime risk: 1. A Diana score greater than 3% is considered moderate risk. If this is the case, consider specialist referral to assess eligibility for a risk reducing agent. If overall lifetime risk for the development of breast cancer is 20% or higher, the patient may qualify for future screening with alternating mammogram and breast MRI. Electronically signed and approved by: Gume Mays D.O.
== END | disposition home or self-care (01) ==
LOC: RADMAMWWP 09:41
PROVIDERS: ATTEND Family Medicine
DX: Z12.31 Encounter for screening mammogram for malignant neoplasm of breast (principal); Z78.0 Asymptomatic menopausal state
CPT/HCPCS: 77063; 77067

== ENCOUNTER → 2024-09-16 | Outpatient (CLI) | payer MEDICARE ==
--- NOTE | 2024-09-20 15:17 | MM ---
Reason for Exam: Screening (asymptomatic). Last mammogram was performed 1 year(s) and 1 month(s) ago. Patient History: Menarche at age 13. First Full-Term at age 22. Postmenopausal. Risk Values: Diana 5 year model risk: 1.4%. NCI Lifetime model risk: 4.3%. Prior Study Comparison: 10/06/2020 Bilateral MG 3D screening mammo w/cad, [facility]. 07/19/2022 Bilateral MG 3D screening mammo w/cad, [facility]. 09/03/2023 Bilateral MG 3D screening mammo w/cad, [facility]. Tissue Density: There are scattered areas of fibroglandular density. Findings: Analyzed By CAD. The pattern is symmetrical. No significant interval change benign punctate calcifications present bilaterally No suspicious groups of microcalcifications, spiculated or lobular masses, architectural distortion or other secondary signs of malignancy are mammographically apparent. Overall Assessment: Benign, BI-RAD 2 Management: Screening Mammogram of both breasts in 1 year. A negative mammogram report should not preclude additional follow up of suspicious palpable abnormalities. Patient should continue monthly self breast exam. A clinical breast exam by your physician is recommended on an annual basis and results should be correlated with mammographic findings. Note on Diana scores and lifetime risk: 1. A Diana score greater than 3% is considered moderate risk. If this is the case, consider specialist referral to assess eligibility for a risk reducing agent. 2. If overall lifetime risk for the development of breast cancer is 20% or higher, the patient may qualify for future screening with alternating mammogram and breast MRI. [facility], , 09/20/2024 3:14 PM. Electronically signed and approved by: Nick Sharp D.O. Radiologis
== END | disposition home or self-care (01) ==
LOC: RADMAMWWP 08:29
PROVIDERS: ATTEND Family Medicine
DX: Z12.31 Encounter for screening mammogram for malignant neoplasm of breast (principal); R92.323 Mammographic fibroglandular density, bilateral breasts; Z78.0 Asymptomatic menopausal state
CPT/HCPCS: 77063; 77067